=== PATIENT | female | born 1955 | race Caucasian/White ===

== ENCOUNTER 2022-11-19 12:08 | Outpatient (OUT) | payer MEDICARE, SELFPAY ==
[2022-11-19 12:41] LABS: Bilirubin Urine NEGATIVE (NEGATIVE); Blood Urine TRACE-I (NEGATIVE); Color Urine LT. YELLOW (YELLOW); Glucose Urine UA NEGATIVE (NEGATIVE); Ketones Urine NEGATIVE (NEGATIVE); Leukocyte Esterase Urine MODERATE (NEGATIVE); Nitrite Urine NEGATIVE (NEGATIVE); Protein Urine NEGATIVE (NEG/TRACE); Urobilinogen Urine 0.2 EU/dL (0.2-1.0)
[2022-11-19 12:44] LABS: Basophils Percent Auto 0.2 % (0.2-2.0); Hematocrit 39.9 % (36.0-48.0); Hemoglobin 13.2 g/dL (12.0-16.0); Immature Granulocytes Abs Auto 0.01 10^3/uL (0.00-0.03); Immature Granulocytes Pct Auto 0.2 % (0.0-0.5); Lymphocytes Absolute Auto 1.8 10^3/uL (1.2-3.8); Lymphocytes Percent Auto 33.2 % (20.5-60.0); Mean Corpuscular HGB Conc 33.1 g/dL (29.9-35.2); Mean Corpuscular Volume 96.6 fL (81.0-99.0); Mean Platelet Volume 10.6 fL (9.5-13.5); Monocytes Absolute Auto 0.6 10^3/uL (0.3-0.8); Monocytes Percent Auto 10.9 % (1.7-12.0); Neutrophils Percent Auto 55.5 % (43.0-75.0); Platelet Count 242 10^3/uL (150-450); Red Blood Count 4.13 10^6/uL (4.20-5.40); Red Cell Distribution Width 13.2 % (11.0-15.0); White Blood Count 5.4 10^3/uL (4.0-11.0)
[2022-11-19 12:47] LABS: Clarity Urine SLIGHTLY CLOUDY (CLEAR)
[2022-11-19 12:49] LABS: Bacteria Urine TRACE #/HPF (NONE SEEN); Cast Seen? NONE SEEN #/LPF (NONE SEEN); Crystals Seen? None Seen #/HPF (None Seen); Mucus Urine NONE SEEN (NONE SEEN); RBC Urine 0-2 #/HPF (0-2); Squamous Epithelial Cell Urine FEW #/LPF (NONE/RARE)
[2022-11-19 12:50] LABS: Urine Culture Indicated YES
[2022-11-19 14:38] LABS: Alanine Aminotransferase 425 U/L (14-59); Albumin Globulin Ratio 0.9; Albumin Level 3.7 g/dL (3.4-5.0); Alkaline Phosphatase 213 U/L (46-116); Amylase 44 U/L (25-115); Anion Gap 12.1; Aspartate Amino Transferase 259 U/L (15-37); BUN Creatinine Ratio 15.7; Bilirubin Total 0.5 mg/dL (0.2-1.0); Calcium 9.4 mg/dL (8.5-10.1); Carbon Dioxide 28.8 mmol/L (21.0-32.0); Chloride 104 mmol/L (98-107); Cholesterol 207 mg/dL (<=200); Estimated GFR (African America >60 (>=60); Estimated GFR (Non-African Ame >60 (>=60); Globulin 3.9 g/dL; Glucose 86 mg/dL (74-106); HDL Cholesterol 70 mg/dL (40-60); Potassium 3.9 mmol/L (3.5-5.1); Sodium 141 mmol/L (136-145); Total Protein 7.6 g/dL (6.4-8.2); Triglycerides 54 mg/dL (<=150); VLDL CHOLESTEROL 10.8 mg/dL
== END 2022-11-19 12:09 ==
LOC: LAB 12:12
PROVIDERS: PCP Nurse Practitioner; Visit Provider Nurse Practitioner
DX: R10.13 Epigastric pain (principal); E78.5 Hyperlipidemia, unspecified
CPT/HCPCS: 36415; 80053; 80061; 81001; 82150; 83690; 85025; 87086; 87150; 87186

== ENCOUNTER 2022-11-20 13:10 | Outpatient (OUT) | payer MEDICARE, SELFPAY ==
--- NOTE | 2022-11-20 13:21 | CT_ITS ---
The [address] [address] Patient Name: TRACI MULLINS MRN: [id number] date: 1955 Sex: F Assigned Patient Location: CT Current Patient Location: CT Accession/Order Number: [id number] Exam Date: 11/20/2022 14:30 Report Date: 11/20/2022 15:09 At the request of: SAL NELSON Procedure: CT abdomen pelvis w con EXAM: CT abdomen pelvis w con HISTORY: Epigastric pain R10.13, Elevated liver function tests R79.89 COMPARISON: None. TECHNIQUE: Following the intravenous administration of 99 mL of Omnipaque, axial soft tissue windows of the abdomen and pelvis were performed with coronal and sagittal reformats. CT dose reduction technique was used including Automated Exposure Control. Findings: ABDOMEN: There is fatty infiltration of the liver. The spleen, pancreas, and adrenal glands are unremarkable. There are stones within the gallbladder. No renal stones or collecting system dilatation. Off the lower pole of the right kidney there is a 1.1 cm cyst. The bilateral ureters are nondilated. The bowel is unremarkable without evidence of wall thickening or obstruction. The appendix is nondilated. The aorta is normal caliber. No enlarged abdominal lymph nodes or free abdominal fluid. Pelvis: Unremarkable bladder. The uterus is surgically absent. No enlarged pelvic lymph nodes or free pelvic fluid. No aggressive sclerotic or lytic osseous lesions. There is mild multilevel degenerative spondylosis. IMPRESSION: 1. Cholelithiasis. 2. Fatty liver. 3. Right renal cyst. Electronically authenticated by: PRIYA FORTE Date: 11/20/2022 15:09
== END 2022-11-20 13:11 ==
LOC: CT 13:13
PROVIDERS: PCP Nurse Practitioner; Visit Provider Nurse Practitioner
DX: R10.13 Epigastric pain (principal); R79.89 Other specified abnormal findings of blood chemistry; K80.20 Calculus of gallbladder without cholecystitis without obstruction; K76.0 Fatty (change of) liver, not elsewhere classified; N28.1 Cyst of kidney, acquired
CPT/HCPCS: 74177; Q9967

== ENCOUNTER 2022-11-21 07:28 | Outpatient (OUT) | payer MEDICARE, SELFPAY ==
[2022-11-21 07:53] LABS: Basophils Percent Auto 0.2 % (0.2-2.0); Hematocrit 39.8 % (36.0-48.0); Hemoglobin 13.3 g/dL (12.0-16.0); Immature Granulocytes Abs Auto 0.01 10^3/uL (0.00-0.03); Immature Granulocytes Pct Auto 0.2 % (0.0-0.5); Lymphocytes Absolute Auto 1.7 10^3/uL (1.2-3.8); Lymphocytes Percent Auto 34.1 % (20.5-60.0); Mean Corpuscular HGB Conc 33.4 g/dL (29.9-35.2); Mean Corpuscular Volume 95.7 fL (81.0-99.0); Mean Platelet Volume 10.2 fL (9.5-13.5); Monocytes Absolute Auto 0.6 10^3/uL (0.3-0.8); Monocytes Percent Auto 11.6 % (1.7-12.0); Neutrophils Absolute Auto 2.7 10^3/uL (1.4-6.5); Neutrophils Percent Auto 53.9 % (43.0-75.0); Platelet Count 230 10^3/uL (150-450); Red Blood Count 4.16 10^6/uL (4.20-5.40); Red Cell Distribution Width 13.4 % (11.0-15.0)
[2022-11-21 08:23] LABS: Alanine Aminotransferase 255 U/L (14-59); Albumin Globulin Ratio 0.9; Albumin Level 3.5 g/dL (3.4-5.0); Alkaline Phosphatase 194 U/L (46-116); Aspartate Amino Transferase 103 U/L (15-37); Bilirubin Direct 0.1 mg/dL (0.0-0.2); Bilirubin Total 0.6 mg/dL (0.2-1.0); Globulin 3.9 g/dL; Total Protein 7.4 g/dL (6.4-8.2)
== END 2022-11-21 07:29 | disposition home or self-care (01) ==
LOC: LAB 07:30
PROVIDERS: PCP Nurse Practitioner; Visit Provider Nurse Practitioner
DX: R79.89 Other specified abnormal findings of blood chemistry (principal)
CPT/HCPCS: 36415; 80076; 85025

== ENCOUNTER 2022-11-22 13:26 | Outpatient (OUT) | payer MEDICARE, SELFPAY ==
--- NOTE | 2022-11-22 13:55 | ECG_ITS ---
The [facility] Test Date: 2022-11-22 Pat Name: TRACI MULLINS Department: Room: - Gender: Female [employer]: : 1955 Requested By: SAL NELSON Order Number: [id number] Reading MD: JOSH GUEVARA Measurements Intervals [place] Rate: 74 P: 48 MT: 167 QRS: 5 QRSD: 82 T: 32 QT: 370 QTc: 412 Interpretive Statements SINUS RHYTHM VOLTAGE CRITERIA FOR LVH [MEETS CRITERIA IN ONE OF: R(aVL), S(V1), R(V5), R(V5/V6)+S(V1)] NONSPECIFIC T-WAVE ABNORMALITY No previous ECG available for comparison Electronically Signed On 11-24-2022 19:37:43 EDT by JOSH GUEVARA
== END 2022-11-22 13:27 | disposition home or self-care (01) ==
LOC: PST 13:26
PROVIDERS: PCP Nurse Practitioner; Visit Provider Surgery
DX: Z01.810 Encounter for preprocedural cardiovascular examination (principal); K80.20 Calculus of gallbladder without cholecystitis without obstruction
CPT/HCPCS: 93005

== ENCOUNTER 2022-11-26 09:36 | Day surgery (SDC) | payer MEDICARE, SELFPAY ==
[2022-11-22 14:22] VITALS: BP 147/87; PULSE 90; RESP 16; TEMP 36.6; O2SAT 98; BMI 31.0
[2022-11-26] VITALS (12 sets, daily range): BP systolic 127–155; BP diastolic 53–87; PULSE 58–74; RESP 13–21; TEMP 36.4; O2SAT 95–100; BMI 31.3
[2022-11-26] MEDS: LACTATED RINGER'S SOLUTION 1,000 ML 50 ML IV (10:06)
[2022-11-26] MEDS: INDOCYANINE GREEN 25 MG VIAL INJ (10:10)
[2022-11-26] MEDS: CEFAZOLIN SODIUM/DEXTROSE,ISO 2 GM/50 ML PIGGYBACK IV (10:15)
[2022-11-26] MEDS: SCOPOLAMINE 1 EACH PATCH.TD.3 1 PATCH TD (10:38)
[2022-11-26] MEDS: BUPIVACAINE HCL 0.5% PF 50 MG/10 ML VIAL 20 ML INJ (11:02)
--- NOTE | 2022-11-26 12:54 | PM.GSPRC ---
Date of procedure: 11/26/22 Indications for Procedure: This patient is a 66-year-old female who was recently seen for episodes of right upper quadrant pain. CT of the abdomen revealed cholelithiasis. Robotic cholecystectomy was recommended. The risks benefits options and potential complications of the procedure were discussed in detail with the patient and they agreed to proceed and consent was signed. Pre-op diagnosis: symptomatic cholelithiasis Post-op diagnosis: same Procedure: robotic cholecystectomy with ICG cholangiogram Anesthesia: GETA Surgeon: Bob Tolentino Procedure Summary: The patient was brought to the operating room placed in the supine position. Gen. anesthesia was induced and the patient was intubated. The abdomen was prepped and draped in usual sterile fashion. She had been given preoperative IV antibiotics and was also given preoperative ICG. A site in the left upper quadrant was infiltrated with half percent Marcaine with epinephrine. A small incision was made. A 12 mm port was placed through this incision and advanced into the peritoneal cavity under laparoscopic guidance. The abdomen was then insufflated to 15 mmHg of carbon dioxide. The camera was reintroduced and safe port site entry was confirmed. Three 8 mm robotic ports were then placed, one at the umbilicus and two in the right lateral abdomen following local anesthesia under direct visualization. The camera was removed and an additional 8 mm port was placed through the 12 mm port. the patient was then placed in reverse Trendelenburg position and banked to the left. At this time the da [place] XI was brought to the field and camera was introduced and all ports direct and instruments introduced in standard fashion.at this time I left the operating table and attended the surgeon consult. The fundus of the gallbladder is grasped and retracted cephalad. The region of Mcdonald's pouch was grasped and retracted laterally. Dissection was not carried out in the region of the triangle of Calot. The cystic duct was readily identified. This was confirmed with a dish room worker. This was then divided between clips. Posterior to this the cystic artery was identified. This was divided after clip placement. The gallbladder was then taken off the liver using electrocautery. Excellent hemostasis and secured clip placement was noted. The gallbladder was then placed in a retrieval bag. This was brought out through the 12 mm port site intact. Instruments, camera and ports were subsequently removed and the abdomen was desufflated. Skin incisions were closed with subcuticular sutures of 4-0 Vicryl. Sterile dressings were applied. The patient tolerated the procedure well and was transferred to the recovery area in stable condition. Estimated blood loss (mL): 2 Specimens: gallbladder Complications: No
[2022-11-26] MEDS: METOCLOPRAMIDE HCL 10 MG/2 ML VIAL IVP (12:58)
--- NOTE | 2022-11-26 13:34 | PC.NURSE ---
right dressing drainage amount unchanged; other 3 dressings dry; states nausea better; states she's afraid to move; given warm blanket; at bedside; taking sips water
--- NOTE | 2022-11-26 14:12 | PC.NURSE ---
right dressing drainage amount unchanged; other 3 dressings dry; denies nausea
--- NOTE | 2022-11-26 14:40 | PC.NURSE ---
Assessment of dressings unchanged; denies nausea
[2023-05-02 14:20] LABS: General Pathology SENT
== END 2022-11-26 14:44 | disposition home or self-care (01) ==
PROVIDERS: PCP Nurse Practitioner; Visit Provider Surgery
PROC: (CPT 47563; principal; 2022-11-26 10:55)
DX: K80.10 Calculus of gallbladder with chronic cholecystitis without obstruction (principal); Z90.710 Acquired absence of both cervix and uterus
CPT/HCPCS: 47563; 36415; 88305; J2704

== ENCOUNTER 2023-03-18 09:49 | Outpatient (OUT) | payer MEDICARE, SELFPAY ==
--- NOTE | 2023-03-18 10:00 | MM_ITS ---
Patient: TRACI MULLINS Exam Date: 03/18/2023 : 1955 Gender:F Ordering : RODRÍGUEZ Landy [place]oba [employer] Admission #: [id number] Family : Order #: [id number] CLICK HERE TO VIEW EXAM RADIOLOGY REPORT PROCEDURE: MM TOMOSYNTHESIS SCREENING BI COMPARISON: MG MAMM SCREEN 3D MAHESH CAD, 12/20/2021. INDICATIONS: Screening Calculator Name NCI Breast Cancer Risk Assessment Tool 5 Year Breast Cancer Risk Not Reported. Lifetime Breast Cancer Risk Not Reported. Personal Breast Cancer No Personal Ovarian Cancer No Treatments None Family Cancers None LOCATION: [facility] BREAST COMPOSITION: Scattered areas fibroglandular density. FINDINGS: DIAGNOSTIC CATEGORY 1--NEGATIVE. NO CHANGE FROM COMPARISON ASSESSMENT. Scattered benign-appearing lymph nodes are present. RIGHT BREAST: No significant suspicious finding. LEFT BREAST: No significant suspicious finding. RECOMMENDATIONS: ROUTINE MAMMOGRAM AND CLINICAL EVALUATION IN 12 MONTHS. PLEASE NOTE: A NORMAL MAMMOGRAM DOES NOT EXCLUDE THE POSSIBILITY OF BREAST CANCER. A CLINICALLY SUSPICIOUS PALPABLE LUMP SHOULD BE BIOPSIED. Dictated by: Alexis Richardson MD on 03/18/2023 at 11:02 Approved by: Alexis Richardson MD on 03/18/2023 at 11:29
== END 2023-03-18 09:50 | disposition home or self-care (01) ==
LOC: MAMMO 09:50
PROVIDERS: PCP Nurse Practitioner; Visit Provider Nurse Practitioner
DX: Z12.31 Encounter for screening mammogram for malignant neoplasm of breast (principal)
CPT/HCPCS: 77063; 77067

== ENCOUNTER 2024-09-27 10:29 | Outpatient (OUT) | payer MEDICARE, SELFPAY ==
[2024-09-27 11:10] LABS: Basophils Percent Auto 0.1 % (0.2-2.0); Hematocrit 37.7 % (36.0-48.0); Hemoglobin 12.7 g/dL (12.0-16.0); Immature Granulocytes Abs Auto 0.02 10^3/uL (0.00-0.03); Immature Granulocytes Pct Auto 0.3 % (0.0-0.5); Lymphocytes Absolute Auto 2.3 10^3/uL (1.2-3.8); Lymphocytes Percent Auto 30.6 % (20.5-60.0); Mean Corpuscular HGB Conc 33.7 g/dL (29.9-35.2); Mean Corpuscular Hemoglobin 32.6 pg (26.7-34.0); Mean Corpuscular Volume 96.9 fL (81.0-99.0); Mean Platelet Volume 10.2 fL (9.5-13.5); Monocytes Percent Auto 13.8 % (1.7-12.0); Neutrophils Absolute Auto 4.2 10^3/uL (1.4-6.5); Neutrophils Percent Auto 55.2 % (43.0-75.0); Platelet Count 246 10^3/uL (150-450); Red Blood Count 3.89 10^6/uL (4.20-5.40); Red Cell Distribution Width 13.2 % (11.0-15.0); White Blood Count 7.6 10^3/uL (4.0-11.0)
[2024-09-27 11:55] LABS: Alanine Aminotransferase 25 U/L (14-59); Albumin Level 3.3 g/dL (3.4-5.0); Alkaline Phosphatase 86 U/L (46-116); Anion Gap 10.8; Aspartate Amino Transferase 21 U/L (15-37); BUN Creatinine Ratio 15.4; Bilirubin Total 0.4 mg/dL (0.2-1.0); Calcium 9.2 mg/dL (8.5-10.1); Carbon Dioxide 30.3 mmol/L (21.0-32.0); Chloride 105 mmol/L (98-107); Estimated GFR (African America >60 (>=60 mL/min/1.73m^2); Estimated GFR (Non-African Ame >60 (>=60 mL/min/1.73m^2); Globulin 3.4 g/dL; Glucose 71 mg/dL (74-106); Potassium 4.1 mmol/L (3.5-5.1); Sodium 142 mmol/L (136-145); Total Protein 6.7 g/dL (6.4-8.2)
== END 2024-09-27 10:30 | disposition home or self-care (01) ==
LOC: LAB 10:31
PROVIDERS: PCP Nurse Practitioner; Visit Provider Nurse Practitioner
DX: E78.2 Mixed hyperlipidemia (principal); H81.10 Benign paroxysmal vertigo, unspecified ear
CPT/HCPCS: 36415; 80053; 85025

== ENCOUNTER 2024-10-06 07:46 | Outpatient (OUT) | payer MEDICARE, SELFPAY ==
--- NOTE | 2024-10-06 07:50 | MM_ITS ---
Patient Name: TRACI MULLINS MR#: [id number] : 1955 Exam Date: 10/06/2024 Ordering Doctor: RODRÍGUEZ NELSON CNP RADIOLOGY REPORT PROCEDURE: MM TOMOSYNTHESIS SCREENING BI COMPARISON: MM TOMOSYNTHESIS SCREENING BI, 03/18/2023. MG MAMM SCREEN 3D MAHESH CAD, 12/20/2021. MG MAMM SCREEN 3D MAHESH CAD, 04/24/2016. MG MAMM SCREEN 3D MAHESH CAD, 11/21/2009. INDICATIONS: Screening Calculator Name NCI Breast Cancer Risk Assessment Tool 5 Year Breast Cancer Risk Not Reported. Lifetime Breast Cancer Risk Not Reported. Personal Breast Cancer No Personal Ovarian Cancer No Treatments None Family Cancers None LOCATION: [facility] BREAST COMPOSITION: There are scattered areas of fibroglandular density. FINDINGS: DIAGNOSTIC CATEGORY 1--NEGATIVE. RIGHT BREAST: No significant suspicious finding. LEFT BREAST: No significant suspicious finding. RECOMMENDATIONS: ROUTINE MAMMOGRAM AND CLINICAL EVALUATION IN 12 MONTHS. PLEASE NOTE: A NORMAL MAMMOGRAM DOES NOT EXCLUDE THE POSSIBILITY OF BREAST CANCER. A CLINICALLY SUSPICIOUS PALPABLE LUMP SHOULD BE BIOPSIED. Dictated by: David Rao DO on 10/06/2024 at 16:03 Approved by: David Rao DO on 10/06/2024 at 16:04
== END 2024-10-06 07:47 | disposition home or self-care (01) ==
LOC: MAMMO 07:47
PROVIDERS: PCP Nurse Practitioner; Visit Provider Nurse Practitioner
DX: Z12.31 Encounter for screening mammogram for malignant neoplasm of breast (principal)
CPT/HCPCS: 77063; 77067

== ENCOUNTER 2025-03-22 06:48 | Outpatient (OUT) | payer MEDICARE, SELFPAY ==
--- OUTSIDE RECORDS SUMMARY | 2025-03-22 06:50 | XMS_ITS | CCD ---
Author Organization [facility] Inform ion Partnership [facility] Care Team Providers Care Christian Education Director Name Role Phone AICCHANTEL, DANCE HALL HOSTESS LANDY Admitting Unavailable AICHHOLZ, DANCE HALL HOSTESS LANDY Attending Unavailable AICHHOLZ, DANCE HALL HOSTESS LANDY Primary Care Unavailable DR GRECIA LOUISE V Consulting Unavailable AICHHOLZ, RODRÍGUEZ LANDY Consulting Unavailable RASTA COREY Consulting Unavailable SORAIDA GARCIA Admitting Unavailable SORAIDA GARCIA Attending Unavailable SORAIDA GARCIA Primary Care Unavailable SORAIDA GARCIA Consulting Unavailable GRECIA HODGES Unavailable AICHHOLZ, DANCE HALL HOSTESS LANDY Admitting Unavailable AICHHOLZ, DANCE HALL HOSTESS LANDY Attending Unavailable AICHHOLZ, DANCE HALL HOSTESS LANDY Primary Care Unavailable AICHHOLZ, DANCE HALL HOSTESS LANDY Consulting Unavailable Aichholz SOFTWARE REQUIREMENTS ENGINEER Landy Unavailable Tomas Martinez MD Primary Care Provider KYLAH PRECIADO Attending Unavailable KYLAH PRECIADO Referring Unavailable KYLAH PRECIADO Attending Unavailable AICHHOLZ, LANDY Attending Unavailable AICHHOLZ, LANDY Attending Unavailable Aichholz Landy GRAY Attending Provider Adalid CLANCY-Landy Rojas Primary Care Provider Allergies Allergy ClassificationReported Allergen(s)Allergy TypeDate of OnsetReaction(s) Facility (15 sources)CodeineDrug Zoccszd01-09-5414FA intoleranceNOMS Healthcare Work Phone: Medications Current Medications MedicationDrug Class(es)DatesSig (Normalized)Sig (Original)busPIRone hydrochloride 5 mg oral tablet (4 sources)Start: 01-12-2025 End: 58-51-0044vfhq 1 tablet by mouth in the morningbusPIRone (Buspar) 5 MG tablet Indications: Elevated blood pressure reading Take 1 tablet (5 mg) bymouth in the morning and 1 tablet (5 mg) before bedtime. 60 tablet 1 01/12/2025 01/12/2025 Discontinued (Reorder)FLUoxetine 10 mg oral capsule (2 sources)Serotonin Reuptake InhibitorStart: 02-19-2025 End: 87-68-0451etnp 1 capsule by mouth once dailyFluoxetine 10 mg capsule Active 10 MG PO Daily February 22, 2025 10:23am Complies with drug therapy losartan potassium 25 mg oral tablet (2 sources)Angiotensin 2 Receptor BlockerStart: 02-22-2025 End: 41-07-0707dlhb 1 tablet by mouth once dailyLosartan 25 mg tablet Active 25 MG PO Daily February 22, 2025 10:23am Complies with drug therapymeloxicam 15 mg oral tablet (8 sources)Nonsteroidal Anti-inflammatory DrugStart: 07-06-2024 End: 11-74-1906zpex 1 tablet by mouth once dailymeloxicam (Mobic) 15 MG tablet Indications: Plantar fasciitis Take 1 tablet (15 mg) by mouth Daily 90 tablet 08/03/2024 11/01/2024 ActivemethylPREDNISolone (5 sources)CorticosteroidStart: 07-06-2024 End: 70-72-7527qapdraHPUMIYZkfnsv (Medrol Dospak) 4 MG tablets Indications: Plantar fasciitis Take as directed on package. 21 tablet 07/06/2024 08/03/2024 Discontinued (Therapy completed)Start: 09-33-3719fnrsgbXWRDFZJkytcl (Medrol Dospak) 4 MG tablets Indications: Plantar fasciitis Take as directed on package. 21 tablet 07/06/2024 Active Problems Problem ClassificationProblemDateDocumented DateEpisodic/ChronicAbdominal pain (5 sources)Right upper quadrant pain; Translations: [RIGHT UPPER QUADRANT PAIN] Onset: 93-18-3025UvktdopiNuhzyan disorders (6 sources)Generalized anxiety disorder; Translations: [Generalized anxiety disorder]Onset: 200790-88-5596VahjohgGkfqadxdcb associated with dizziness or vertigo (18 sources)Benign paroxysmal positional vertigo; Translations: [Benign paroxysmal vertigo, unspecified ear]Onset: 385102-92-7441VvtdyivuBendbhgft of lipid metabolism (18 sources)Mixed hyperlipidemia; Translations: [Mixed hyperlipidemia]Onset: 098699-69-0404WqwsnxpPbmuoqrkt hypertension (2 sources)Essential hypertension; Translations: [Essential (primary) hypertension]31-01-1525FomnwcbOeywtzslebjyxc (20 sources)Heberden node; 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)] Onset: 04-20-2024 Resolved: 771572-78-9010LxujbotWitqy acquired deformities (20 sources)Equinus contracture of the ankle; Translations: [Contracture, unspecified ankle]Onset: 972039-88-7096TcjbdhmFozbe circulatory disease (5 sources)Elevated blood pressure; Translations: [Elevated blood-pressure reading, without diagnosis of hypertension]Onset: 862074-05-9520Hflztlht Other connective tissue disease (4 sources)Plantar fasciitis; Translations: [Plantar fascial fibromatosis] 84-90-7275FpdxdcqoRdjbb connective tissue disease (2 sources)Pain in right foot; Translations: [Pain in right foot]07-06-2024 EpisodicOther nutritional; endocrine; and metabolic disorders (1 source)Obesity, unspecified; Translations: [OBESITY UNSPECIFIED]Onset: 98-35-7779QrtxluxZzhas screening for suspected conditions (not mental disorders or infectious disease) (20 sources)Encounter for screening mammogram for malignant neoplasm of breast; Translations: [Encounter for screening for lipoid disorders]Onset: 11-29-2021 Episodic Results Test NameValueInterpretationReference RangeFacilityMM TOMOSYNTHESIS SCREENING BI on 10-72[place] [address] Mammography Report Signed Patient: ANGELES MULLINS MR#: [id number] : 1955 Acct:[id number] Age/Sex: 68 / F ADM Date: 10/06/24 Loc: MAMMO Attending Dr: Landy Cordoba NP Ordering Physician: Landy Cordoba NP Results: Date of Service: 10/06/24 Follow Up: Procedure(s): MM tomosynthesis screening BI Accession Number(s): [id number] cc: Landy Cordoba NP Patient Name: ANGELES MULLINS MR#: [id number] : 1955 Exam Date: 10/06/2024 Ordering Doctor: RODRÍGUEZ CORDOBA CNP RADIOLOGY REPORT PROCEDURE: MM TOMOSYNTHESIS SCREENING BI COMPARISON: MM TOMOSYNTHESIS SCREENING BI, 03/18/2023. MG MAMM SCREEN 3D MAHESH CAD, 12/20/2021. MG MAMM SCREEN 3D MAHESH CAD, 04/24/2016. MG MAMM SCREEN 3D MAHESH CAD, 11/21/2009. INDICATIONS: Screening Calculator Name NCI Breast Cancer Risk Assessment Tool 5 Year Breast Cancer Risk Not Reported. Lifetime Breast Cancer Risk Not Reported. Personal Breast Cancer No Personal Ovarian Cancer No Treatments None Family Cancers None LOCATION: [facility] BREAST COMPOSITION: There are scattered areas of fibroglandular density. FINDINGS: DIAGNOSTIC CATEGORY 1--NEGATIVE. RIGHT BREAST: No significant suspicious finding. LEFT BREAST: No significant suspicious finding. RECOMMENDATIONS: ROUTINE MAMMOGRAM AND CLINICAL EVALUATION IN 12 MONTHS. PLEASE NOTE: A NORMAL MAMMOGRAM DOES NOT EXCLUDE THE POSSIBILITY OF BREAST CANCER. A CLINICALLY SUSPICIOUS PALPABLE LUMP SHOULD BE BIOPSIED. Dictated by: David Rao DO on 10/06/2024 at 16:03 Approved by: David Rao DO on 10/06/2024 at 16:04 Dictated By: David Rao M.D. Signed By: 10/06/24 1605 DD/ 1604 TD/TT: Data Control Clerk Supervisor:TBHRadiology, Radiologist, MD - 10/06/2024 [place] [address] Mammography Report Signed Patient: ANGELES MULLINS MR#: [id number] : 1955 Acct:[id number] Age/Sex: 68 / F ADM Date: 10/06/24 Loc: MAMMO Attending Dr: Landy Cordoba NP Ordering Physician: Landy Cordoba NP Results: Date of Service: 10/06/24 Follow Up: Procedure(s): MM tomosynthesis screening BI Accession Number(s): [id number] cc: Landy Cordoba NP Patient Name: ANGELES MULLINS MR#: [id number] : 1955 Exam Date: 10/06/2024 Ordering Doctor: RODRÍGUEZ CORDOBA CNP RADIOLOGY REPORT PROCEDURE: MM TOMOSYNTHESIS SCREENING BI COMPARISON: MM TOMOSYNTHESIS SCREENING BI, 03/18/2023. MG MAMM SCREEN 3D MAHESH CAD, 12/20/2021. MG MAMM SCREEN 3D MAHESH CAD, 04/24/2016. MG MAMM SCREEN 3D MAHESH CAD, 11/21/2009. INDICATIONS: Screening Calculator Name NCI Breast Cancer Risk Assessment Tool 5 Year Breast Cancer Risk Not Reported. Lifetime Breast Cancer Risk Not Reported. Personal Breast Cancer No Personal Ovarian Cancer No Treatments None Family Cancers None LOCATION: [facility] BREAST COMPOSITION: There are scattered areas of fibroglandular density. FINDINGS: DIAGNOSTIC CATEGORY 1--NEGATIVE. RIGHT BREAST: No significant suspicious finding. LEFT BREAST: No significant suspicious finding. RECOMMENDATIONS: ROUTINE MAMMOGRAM AND CLINICAL EVALUATION IN 12 MONTHS. PLEASE NOTE: A NORMAL MAMMOGRAM DOES NOT EXCLUDE THE POSSIBILITY OF BREAST CANCER. A CLINICALLY SUSPICIOUS PALPABLE LUMP SHOULD BE BIOPSIED. Dictated by: David Rao DO on 10/06/2024 at 16:03 Approved by: David Rao DO on 10/06/2024 at 16:04 Dictated By: David Rao M.D. Signed By: 10/06/24 1605 DD/ 1604 TD/TT: Data Control Clerk Supervisor: DAIANA HealthcareRadiology Study observation (narrative)[facility]M Health CareMM TOMOSYNTHESIS SCREENING BIOrdered By: Radiologist Radiology on 41-99-6557IXVDSSM Health Care Work Phone: aLL CBC WITH AUTO DIFFon [id number] ABSOLUTE SURK7ZVUJ HealthcareBasophils/100 WBC (Bld)0.1 %Low0.2 - 2.0 %[facility] Eosinophils/100 WBC (Bld)0 %Low0.9 - 7.0 %NOM HealthcareErythrocyte distribution width (RBC) [Ratio]13.2 %11.0 - 15.0 %NOM HealthcareHematocrit (Bld) [Volume fraction]37.7 %36.0 - 48.0 %[facility] HealthcareHemoglobin (Bld) [Mass/Vol]12.7 g/dL12.0 - 16.0 g/dLSSM Health CareIMMATURE GRANULOCYTES ABS AUTO 0.02NOLee's Summit HospitalImmature granulocytes/100 WBC (Bld)0.3 %0.0 - 0.5 %[facility] Health CareInterpretation and review of laboratory resultsAbnormalSSM Health Care LYMPHOCYTES ABSOLUTE AUTO2.3NOLee's Summit HospitalLymphocytes/100 WBC (Bld)30.6 %20.5 - 60.0 %[facility] CenterH (RBC) [Entitic mass]32.6 pg26.7 - 34.0 pgMissouri Rehabilitation CenterHC (RBC) [Mass/Vol]33.7 g/dL29.9 - 35.2 g/dLMissouri Rehabilitation CenterV (RBC) [Entitic vol]96.9 fL81.0 - 99.0 fLSSM Health CareMONOCYTES ABSOLUTE ZLRK5Cmpi SSM Health CareMonocytes/100 WBC (Bld)13.8 %High1.7 - 12.0 %[facility] NEUTROPHILS ABSOLUTE AUTO4.2NOMS [facility] HospitalNeutrophils/100 WBC (Bld)55.2 %43.0 - 75.0 %[facility] Health CarePlatelet mean volume (Bld) [Entitic vol]10.2 fL9.5 - 13.5 fLSSM Health CareTB EO #0NOLee's Summit HospitalTB [id number]'s Summit Hospital RBC3.89Low [facility] WBC7.6SSM Health CareCLINISYNCNOMS HealthcareXR Calcaneus - right 2 Viewson 61-42-5795Tgfaxfk Result: Lateral, calcaneal axial views are weight-bearing. Slight rearfoot varus. There is decreased calcaneal inclination, increased talar declination. Enthesophyte and calcifications noted at the insertion of the plantar fascia. Appears to be dorsal talonavicular step-off consistent with spring ligament tear, likely chronic.[facility] CenterRadiology Study observation (narrative)SSM Health CareMG MAMM SCREEN 3D MAHESH CADon 70-68-8912MX MAMM SCREEN 3D MAHESH CADPatient: NAGELES MULLINS Exam Date: 12/20/2021 : 1955 Gender:F Ordering : RODRÍGUEZ CORDOBA DANCE HALL HOSTESS Admission #: [id number] Family : Order #: [id number] CLICK HERE TO VIEW EXAM RADIOLOGY REPORT PROCEDURE: MAMMOGRAM SCREENING 3D BILATERAL CAD COMPARISON: MG MAMM SCREEN 3D MAHESH CAD, 11/21/2009. MG MAMM SCREEN 3D MAHESH CAD, 04/24/2016. INDICATIONS: Screening mammography Calculator Name NCI Breast Cancer Risk Assessment Tool 5 Year Breast Cancer Risk Not Reported. Lifetime Breast Cancer Risk Not Reported. Personal Breast Cancer No Personal Ovarian Cancer No Treatments None Family Cancers None LOCATION: [facility] BREAST COMPOSITION: Scattered areas fibroglandular density. FINDINGS: DIAGNOSTIC CATEGORY 2--BENIGN FINDING: Scattered benign-appearing calcifications are present. Scattered benign-appearing lymph nodes are present. RIGHT BREAST: No significant suspicious finding. LEFT BREAST: No significant suspicious finding. RECOMMENDATIONS: ROUTINE MAMMOGRAM AND CLINICAL EVALUATION IN 12 MONTHS. PLEASE NOTE: A NORMAL MAMMOGRAM DOES NOT EXCLUDE THE POSSIBILITY OF BREAST CANCER. A CLINICALLY SUSPICIOUS PALPABLE LUMP SHOULD BE BIOPSIED. Dictated by: Grecia Louise MD on 12/20/2021 at 13:24 Approved by: Grecia Louise MD on 12/20/2021 at 13:26[facility] CenterNM HEPATOBILIARY SCAN W EFon 26-98-3045NA HEPATOBILIARY SCAN W EFHIDA SCAN WITH GALLBLADDER EJECTION FRACTION HISTORY: Abdominal Pain. COMPARISON: Ultrasound 05/30/2021. METHOD: Following IV injection of 5.1 mCi of aueqnbqpbo-45a-Qbyxvxsc, anterior imaging of the abdomen was acquired for 60 minutes. After the gallbladder was given 8 ounces of Ensure and the gallbladder ejection fraction was calculated. FINDINGS: There is satisfactory uptake of radiopharmaceutical by the liver. The gallbladder, bile duct, and bowel are seen in the expected period of time and sequence. The gallbladder ejection fraction is normal at 76%. IMPRESSION: Normal hepatic biliary scintigraphy and gallbladder ejection fraction. Electronically authenticated by: RASTA COREY Date: 2021-12-20 15:24[facility] AUTO DIFFon [id number] #0.0 103/ulNormal0.0-0.1The [facility] HospitalComment on above:Performed By: #### CBC #### [facility] [address] [address] [address] Maria G Barrossophils/100 WBC (Bld)0.2 %Normal0.2-2.0[facility] Comment on above:Performed By: #### CBC #### [facility] [address] [place] [address] Dr. Maria G Huggins #0.0 103/ulNormal0.0-0.7The [facility] HospitalComment on above: Performed By: #### CBC #### [facility] [address] [place] [address] Dr. Maria G Bainosinophils/100 WBC (Bld)0.0 %Critically low0.9-7.0The [facility] HospitalComment on above:Performed By: #### CBC #### [facility] [address] [place] [address] Dr. Maria G Bainrythrocyte distribution width (RBC) [Ratio]13.7 %Icnrhk56.0-15.0 The [facility] HospitalComment on above:Performed By: #### CBC #### [facility] [address] [place] [address] Dr. Maria G EmHematocrit (Bld) [Volume fraction]40.8 %Ccjclm56.0-48.0The [facility] HospitalComment on above:Performed By: #### CBC #### [facility] [address] [place] [address] Dr. Maria G EmHemoglobin (Bld) [Mass/Vol]13.3 g/xCRxgnma12.0-16.0The [facility] HospitalComment on above:Performed By: #### CBC #### [facility] [address] [place] [address] Dr. Maria G Washington #0.01 10e3/ulNormal0.00-0.03The [facility] HospitalComment on above:Performed By: #### CBC #### [facility] [address] [place] [address] Dr. Maria G Washington %0.2 %Normal0.0-0.5The [facility] HospitalComment on above: Performed By: #### CBC #### [facility] [address] [place] [address] Dr. Maria G Burch #1.9 103/ulNormal1.2-3.8The [facility] HospitalComment on above:Performed By: #### CBC #### [facility] [address] [place] [address] Dr. Maria G Chaparromphocytes/100 WBC (Bld)33.8 %Rrlypd54.5-60.0The [facility] HospitalComment on above:Performed By: #### CBC #### [facility] [address] [place] [address] Dr. Maria G Quintana DIFF REQNONormalThe [facility] HospitalComment on above: Performed By: #### CBC #### [facility] [address] [place] [address] Dr. Maria G Salcido (RBC) [Entitic mass]31.5 abAatbxm31.7-34.0The [facility] HospitalComment on above:Performed By: #### CBC #### [facility] [address] [place] [address] Dr. Maria G Salcido (RBC) [Mass/Vol]32.6 g/gZQfblpt62.9-35.2The [facility] HospitalComment on above:Performed By: #### CBC #### [facility] [address] [place] [address] Dr. Maria G Collier (RBC) [Entitic vol]96.7 gTPocqfm27.0-99.0The [facility] HospitalComment on above:Performed By: #### CBC #### [facility] [address] [place] [address] Dr. Maria G Centeno #0.8 103/ulNormal0.3-0.8The [facility] HospitalComment on above:Performed By: #### CBC #### [facility] [address] [place] [address] Dr. Maria G Mimsocytes/100 WBC (Bld)13.5 %Critically high1.7-12.0The [facility] HospitalComment on above:Performed By: #### CBC #### [facility] [address] [place] [address] Dr. Maria G Romero #3.0 103/ulNormal1.4-6.5The [facility] HospitalComment on above:Performed By: #### CBC #### [facility] [address] [address] [address] Maria G Hdzutrophils/100 WBC (Bld)52.3 %Imqkea17.0-75.0The [facility] HospitalCombeaumont hospital on above:Performed By: #### CBC #### [facility] [address] [place] [address] Dr. Maria G EmPlatelet mean volume (Bld) [Entitic vol]11.7 fLNormal9.5-13.5The [facility] HospitalCombeaumont hospital on above:Performed By: #### CBC #### [facility] [address] [place] [address] Dr. Maria G EmPLT251 103/ysMiyfcg902-223Kym [facility] HospitalCombeaumont hospital on above: Performed By: #### CBC #### [facility] [address] [place] [address] Dr. Maria G EmRBC4.22 106/ulNormal4.20-5.40The [facility] on above:Performed By: #### CBC #### [facility] [address] [place] [address] Dr. Maria G EmWBC5.7 103/ulNormal4.0-11.0The [facility] on above: Performed By: #### CBC #### [facility] [address] [place] [address] Dr. Maria G EmLIPID PROFILEon 37-39-8177YFKX-HDL RATIO NORMSACMC Healthcare System GlenbeighCombeaumont hospital on above:Result Comment: 3.3 - 4.4 LOW RISK 4.4 - 7.1 AVERAGE RISK 7.1 - 11.0 MODERATE RISK >11.0 HIGH RISKPerformed By: #### CMP, LIPID #### [facility] [address] [place] [address] Dr. Maria G EmCholesterol [Mass/Vol]208 mg/dLCritically high<=200The [facility] on above:Performed By: #### CMP, LIPID #### [facility] [address] [address] [address] Maria G EmCholesterol in HDL [Mass/Vol]55 mg/oXGerowe50-55Zhg [facility] HospitalComment on above:Performed By: #### CMP, LIPID #### [facility] [address] [address] [address] Maria G EmCholesterol in LDL [Mass/Vol]136.4 mg/dLNoAdena Health SystemComment on above:Performed By: #### CMP, LIPID #### [facility] [address] [place] [address] Dr. Maria G Devine.total/Cholesterol in HDL [Mass ratio]3.8 {ratio} NormalThe [facility] HospitalComment on above:Performed By: #### CMP, LIPID #### [facility] [address] [place] [address] Dr. Maria G Selby NORMAL> or = 60 mg/dl - LOW CARDIOVASCULAR RISK <40 mg/dl - HIGH CARDIOVASCULAR RISKUniversity Hospitals Conneaut Medical CenterCombeaumont hospital on above:Performed By: #### CMP, LIPID #### [facility] [address] [place] [address] Dr. Maria G Brar CALC NORMALSEE BELOWUniversity Hospitals Conneaut Medical CenterComment on above:Result Comment: <100 mg/dl OPTIMAL 100 - 129 mg/dl NEAR OR ABOVE OPTIMAL 130 - 159 mg/dl BORDERLINE HIGH 160 - 189 mg/dl HIGH >190 mg/dl VERY HIGH Performed By: #### CMP, LIPID #### [facility] [address] [place] [address] Dr. Maria G EmTriglyceride [Mass/Vol]83 mg/dLNormal<=150The [facility] Comment on above:Performed By: #### CMP, LIPID #### [facility] [address] [address] [address] Maria G HouseLDL CALC16.6 mg/dLNoAdena Health SystemComment on above: Performed By: #### CMP, LIPID #### [facility] [address] [address] [address] Maria G Cabrera 14(COMP METB)on 20-27-4514Szqvbsy [Mass/Vol]3.5 g/dLNormal 3.4-5.0The [facility] HospitalComment on above:Performed By: #### CMP, LIPID #### [facility] [address] [address] [address] Maria G EmAlbumin/Globulin [Mass ratio]1.0 {ratio}NormalThe [facility] HospitalComment on above:Performed By: #### CMP, LIPID #### [facility] [address] [address] [address] Maria G Spivey [Catalytic activity/Vol]83 U/FIopine64-425Kro [facility] HospitalComment on above:Performed By: #### CMP, LIPID #### [facility] [address] [address] [address] Maria G Ruvalcaba [Catalytic activity/Vol]29 U/TJinzod15-26Xpu [facility] HospitalComment on above:Performed By: #### CMP, LIPID #### [facility] [address] [address] [address] Maria G Gallo gap [Moles/Vol]12.5 mmol/LNormalThe [facility] Comment on above:Performed By: #### CMP, LIPID #### [facility] [address] [address] [address] Maria G Haridn [Catalytic activity/Vol]21 U/EQgfsrl57-36Ahc [facility] HospitalComment on above:Performed By: #### CMP, LIPID #### [facility] [address] [address] [address] Maria G EmBilirubin [Mass/Vol]0.3 mg/dLNormal0.2-1.0The [facility] Comment on above:Performed By: #### CMP, LIPID #### [facility] [address] [address] [address] Maria G EmCalcium [Mass/Vol]9.0 mg/dLNormal8.5-10.1The [facility] Comment on above:Performed By: #### CMP, LIPID #### [facility] [address] [address] [address] Maria G EmChloride [Moles/Vol]107 mmol/UHuzyqt51-208Nbt [facility] Comment on above:Performed By: #### CMP, LIPID #### [facility] [address] [address] [address] Maria G EmCO2 [Moles/Vol]28.1 mmol/MDjnvkg10.0-32.0The [facility] Comment on above:Performed By: #### CMP, LIPID #### [facility] [address] [address] [address] Maria G EmCreatinine [Mass/Vol]0.90 mg/dLNormal0.55-1.02White HospitalComment on above:Performed By: #### CMP, LIPID #### [facility] [address] [address] [address] Maria G BainGFR-AF YEMENI>60Normal>=60The [facility] HospitalComment on above:Performed By: #### CMP, LIPID #### [facility] [address] [address] [address] Maria G Gonzalez-NON AF YEMENI>60Normal>=60The [facility] HospitalComment on above:Performed By: #### CMP, LIPID #### [facility] [address] [address] [address] Maria G EmGlobulin (S) [Mass/Vol]3.4 g/dLNormalThe [facility] HospitalComment on above:Performed By: #### CMP, LIPID #### [facility] [address] [address] [address] Maria G EmGlucose [Mass/Vol]93 mg/xGFvjygm19-670OqzWhite Hospital Comment on above:Performed By: #### CMP, LIPID #### [facility] [address] [address] [address] Maria G EmPotassium [Moles/Vol]4.6 mmol/LNormal3.5-5.1The [facility] Comment on above:Performed By: #### CMP, LIPID #### [facility] [address] [address] [address] Maria G EmProtein [Mass/Vol]6.9 g/dLNormal6.4-8.2The [facility] Comment on above:Performed By: #### CMP, LIPID #### [facility] [address] [address] [address] Maria G EmSodium [Moles/Vol]143 mmol/DLxyiac833-994Tlm [facility] Comment on above:Performed By: #### CMP, LIPID #### [facility] [address] [address] [address] Maria G Michael nitrogen [Mass/Vol]14.0 mg/dLNormal7.0-18.0The [facility] HospitalComment on above:Performed By: #### CMP, LIPID #### [facility] [address] [place] [address] Dr. Maria G Michael nitrogen/Creatinine [Mass ratio]15.6 mg/mgNormalThe [facility] HospitalComment on above:Performed By: #### CMP, LIPID #### [facility] [address] [place] [address] Dr. Maria G Saeed RANDOM W/MICROSCOPICon 95-58-5329TPPQDNYNF CRYSTALSFEWNormal The [facility] HospitalComment on above:Performed By: #### UAMIC #### [facility] [address] [place] [address] Dr. Maria G BarrosCTERIAMODERATEAbnormalNONE SEENWhite HospitalComment on above:Performed By: #### UAMIC #### [facility] [address] [place] [address] Dr. Maria G EmBilirubin Ql (U)NegativeNormalNEGATIVEWhite Hospital Comment on above:Performed By: #### UAMIC #### [facility] [address] [place] [address] Dr. Maria G EmCASTRENE SEENNormalNONE SEENWhite HospitalComment on above:Performed By: #### UAMIC #### [facility] [address] [address] [address] Maria G EmClarity (U)CLEARNormalCLEARWhite HospitalComment on above: Performed By: #### UAMIC #### [facility] [address] [address] [address] Maria G Musa (U)LT. YELLOWNormalYELLOWWhite HospitalComment on above:Performed By: #### UAMIC #### [facility] [address] [address] [address] Maria G EmCrystals LM Nom (Urine sed)SEENAbnormalNONE SEENWhite HospitalComment on above:Performed By: #### UAMIC #### [facility] [address] [place] [address] Dr. Cummins ChangEpithelial cells LM Ql (Urine sed)FEWAbnormalNONE SEEN /RAREThe [facility]lap Memorial HospitalComment on above:Performed By: #### UAMIC #### [facility] [address] [place] [address] Dr. Maria G EmGlucose Ql (U)NegativeNormalNEGATIVEWhite HospitalComment on above:Performed By: #### UAMIC #### [facility] [address] [place] [address] Dr. Maria G EmHemoglobin Ql (U)NegativeNormalNEGATIVEKettering Health [place] on above:Performed By: #### UAMIC #### [facility] [address] [place] [address] Dr. Maria G EmKetones Ql (U)NegativeNormalNEGATIVEWhite HospitalComment on above:Performed By: #### UAMIC #### [facility] [address] [place] [address] Dr. Maria G EmLEUKOCYTESSMALLAbnormalNEGATIVEWhite HospitalComment on above:Performed By: #### UAMIC #### [facility] [address] [address] [address] Maria G EmMUCOUSNONE SEENNormalNONE SEENWhite HospitalComment on above:Performed By: #### UAMIC #### [facility] [address] [place] [address] Dr. Maria G Jones Ql (U)NegativeNormalNEGATIVEThe [facility] HospitalComment on above:Performed By: #### UAMIC #### [facility] [address] [place] [address] Dr. Maria G EmpH (U)5.5 [pH]Normal5-9The [facility] Memorial HospitalComment on above: Performed By: #### UAMIC #### [facility] [address] [place] [address] Dr. Maria G EmRBCNONE SEENAbnormal0-2The [facility] HospitalComment on above: Performed By: #### UAMIC #### [facility] [address] [place] [address] Dr. Maria G EmSPEC GRAVITY1.475Qfrofr7.005-<=1.025The [facility] Memorial HospitalComment on above:Performed By: #### UAMIC #### [facility] [address] [place] [address] Dr. Maria G Saeed PROTEINNegativeNormalNEGATIVE/ TRACEThe [facility] Comment on above:Performed By: #### UAMIC #### [facility] [address] [place] [address] Dr. Maria G Martinbilyordygen Qn (U)0.2 {Rupal'U}/dLNormal0.2 - 1.0The [facility] HospitalComment on above:Performed By: #### UAMIC #### [facility] [address] [place] [address] Dr. Maria G EmZwtwxKTM57-45WdikdmmaOJBU SEENWhite HospitalComment on above: Performed By: #### UAMIC #### [facility] [address] [place] [address] Dr. Maria G EmProvider Letter FTon 16-74-0748Nstpfxpp Letter [facility]2021 Soraida Garcia, [address] [place] [address] Re: ANGELES MULLINS Date of : 1955 Thank you for your referral of Angeles Mullins who was seen on consultation for RUQ pain with nausea and vomiting. I have enclosed my consultation note for your review. I will be happy to follow Angeles should her symptoms persist. Sincerely, Rowdy Soto MD General SurgeryNationwide Children's HospitalRAD - Ultrasound Reporton [id number] - Ultrasound Report [id number]:127[facility] HospitalRAD - Ultrasound Reporton [id number] - Ultrasound Report [id number]:127[facility]wide Children's HospitalUS SINGLE QUAD RT UPPERon 53-86-2031HD SINGLE QUAD RT UPPEREXAM: US SINGLE QUAD RT UPPER HISTORY: . Right upper quadrant pain . COMPARISON: None. TECHNIQUE: Oswald scale and color imaging was performed FINDINGS: The body of the pancreas appears normal. The head and tail was obscured due to overlying bowel gas. Scanning of the liver demonstrates a liver to be normal in size. No focal masses or biliary dilatation is noted. Color-flow is noted in the portal and hepatic veins the gallbladder there is a 1.9 x 1.4 cm echogenic focus with no shadowing. Findings would be most consistent with a sludge ball. Patient had no pain upon scanning over the gallbladder. Common bile duct measures 8 mm. Right kidney measured 10.8 x 4 x 4.2 cm. No solid renal cortical masses or hydronephrosis was noted. No fluid was noted in the right upper quadrant. IMPRESSION: 1. 1.9 x 1.4 cm echogenic focus within the gallbladder without shadowing most consistent with a sludge ball. Patient had no pain upon scanning over the gallbladder. 2. Common bile duct was prominent measuring 8 mm. 3. The body of the pancreas appears normal. The head and tail was obscured due to overlying bowel gas. 4. The remainder the right upper quadrant was unremarkable. Electronically authenticated by: GRECIA HODGES Date: 2021-05-30 08:24[facility] Vital Signs Date TimeVital SignValuePerforming FcgwnsmatRucmsdhr59-13-2493 09:58-0400Body srdyjl853.21 Baldemarisa Aichholz SOFTWARE REQUIREMENTS ENGINEER-C Work Phone: [phone] [place], [place] 0310609-23-2025 09:58-0400 Body mass index (BMI) [Ratio]31.6 kg/m2Lisa Aichholz SOFTWARE REQUIREMENTS ENGINEER-C Work Phone: [phone]09-23-2025 09:58-0400 Body frxevyhblud17.6 [degF]Landy Aichholz SOFTWARE REQUIREMENTS ENGINEER-C Work Phone: [phone]09-23-2025 09:58-0400 Body gnzjer62.22 kgLisa Aichholz SOFTWARE REQUIREMENTS ENGINEER-C Work Phone: [phone]09-23-2025 09:58-0400 Diastolic blood bqsirjtv027 mm[Hg]Landy Aichholz SOFTWARE REQUIREMENTS ENGINEER-C Work Phone: [phone]09-23-2025 09:58-0400 Heart rate60 /minLisa Aichholz SOFTWARE REQUIREMENTS ENGINEER-C Work Phone: [phone]09-23-2025 09:58-0400 Respiratory rate18 /minLisa Aichholz SOFTWARE REQUIREMENTS ENGINEER-C Work Phone: [phone]09-23-2025 09:58-0400 SaO2% (BldA) [Mass fraction]96 %Landy Aichholz SOFTWARE REQUIREMENTS ENGINEER-C Work Phone: [phone] [place], [place] [address]609-23-2025 09:58-0400 Systolic blood isxjxjvz165 mm[Hg]Landy Aichholz SOFTWARE REQUIREMENTS ENGINEER-C Work Phone: [phone]08-13-2025 09:37-0400 Body mass index (BMI) [Ratio]32.61 kg/m2Lisa Aichholz SOFTWARE REQUIREMENTS ENGINEER Work Phone: [facility] CareLyfaovtmvk41-56-1961 09:37-0400Body temperature 97.81 [degF]Landy Aichholz SOFTWARE REQUIREMENTS ENGINEER Work Phone: [facility] CareBllrylvvfg42-56-0197 09:37-0400Body mybikk22.29 kgLandy Cordoba SOFTWARE REQUIREMENTS ENGINEER Work Phone: [facility] CareCmqdgylgtm68-63-3160 09:37-0400Diastolic blood lqdrirgn45 mm[Hg]Landy Cordoba SOFTWARE REQUIREMENTS ENGINEER Work Phone: [facility] CareQeuytzceaf58-04-9316 09:37-0400Heart rate62 /min Landy Cordoba SOFTWARE REQUIREMENTS ENGINEER Work Phone: [facility] CarePxdpfcicsa12-12-2015 09:37-0400Respiratory rate20 /minLandy Cordoba SOFTWARE REQUIREMENTS ENGINEER Work Phone: [facility] CareSwvnjsezsa80-24-3200 09:37-8790PhD9% (BldA) [Mass fraction]98 %Landy Cordoba SOFTWARE REQUIREMENTS ENGINEER Work Phone: [facility] CareOliwrlvocv32-83-8714 09:37-0400Systolic blood lznmyuyx939 mm[Hg]Landy Cordoba SOFTWARE REQUIREMENTS ENGINEER Work Phone: [facility] CareUecuminiwd77-43-4203 08:56-0500Body gcvzzi969.9 cmAnthony Rusher DPM Work Phone: [facility] CareDspsgrqpga73-47-2080 08:56-0500Body mass index (BMI) [Ratio]32.88 kg/m2Zjqxewp Rusher DPM Work Phone: [facility] CareKcimxltldj79-50-9110 08:56-0500Body lppusf05.93 kgAnthony Rusher DPM Work Phone: [facility] CareWjnctmjzfr91-58-1804 13:23-0500Body ejmzxw521.9 cmAnthony Rusher DPM Work Phone: [facility] CareFvbwycvrcw09-74-2761 13:23-0500Body mass index (BMI) [Ratio]32.88 kg/b4Ruugdrv Rusher DPM Work Phone: [facility] CareGwvkivspak00-82-5683 13:23-0500Body gdkeot71.93 kgAnthony Rusher DPM Work Phone: [address] [address]Otbesswgjp19-94-2537 10:00-0500Body .6 Gladis Adalid SOFTWARE REQUIREMENTS ENGINEER Work Phone: [address] [address]Hnmxswianz71-15-8685 10:00-0500Body mass index (BMI) [Ratio]32.72 kg/m2Landy Adalid SOFTWARE REQUIREMENTS ENGINEER Work Phone: [address] [address]Qudaqoelyt49-41-7744 10:00-0500Body temperature 97.81 [degF]Landy Adalid SOFTWARE REQUIREMENTS ENGINEER Work Phone: [address] [address]Sravzyyikv38-28-0479 10:00-0500Body kjjynu79.2 kg Landy Adalid SOFTWARE REQUIREMENTS ENGINEER Work Phone: [address] [address]Paxjgrwuds26-40-3530 10:00-0500Diastolic blood mm[Hg]Landy Adalid SOFTWARE REQUIREMENTS ENGINEER Work Phone: [address] [address]Idpgfiyqjz67-91-1288 10:00-0500Heart rate80 /min Landy Adalid SOFTWARE REQUIREMENTS ENGINEER Work Phone: [address] [address]Bbgxffucol34-91-7036 10:00-0500Respiratory rate20 /minLi Adalid SOFTWARE REQUIREMENTS ENGINEER Work Phone: [address] [address]Jvblvpwgsj97-83-8084 10:00-6798DaY3% (BldA) [Mass fraction]97 %Landy Adalid SOFTWARE REQUIREMENTS ENGINEER Work Phone: [address] [address]Frzfbaekwy28-95-1626 10:00-0500Systolic blood vlogfifx583 mm[Hg]Landy Adalid SOFTWARE REQUIREMENTS ENGINEER Work Phone: [facility] Healthcare Encounters Encounter DateEncounter TypeCare ProviderFacilityStart: 02-22-2025 End: 51-65-1749apmsaqrixsMzuu J Aichholz SOFTWARE REQUIREMENTS ENGINEER-C Work Phone: [facility] Work Phone: Start: 02-22-2025 End: 52-16-2581Gyiqbto encounter procedureLisa Estephanie Cordoba SOFTWARE REQUIREMENTS ENGINEER-C-[facility] Work Phone: Start: 61-96-8911Jkwnmuv encounter procedureLisa Cordoba SOFTWARE REQUIREMENTS ENGINEER-C Work Phone: [facility]: 29-66-2799Bon- patient / Non-visitLisa Estephanie Cordoba SOFTWARE REQUIREMENTS ENGINEER-C-[facility] Work Phone: Start: 01-12-2025 End: 87-77-4493Vluqfw flowsheetLisa Garrettholz SOFTWARE REQUIREMENTS ENGINEER Work Phone: [facility] FMStart: 01-12-2025 End: 24-64-4641Vdlavc flowsheetLisa Garrettholz SOFTWARE REQUIREMENTS ENGINEER Work Phone: [facility] FMStart: 01-12-2025 End: 44-31-3209Tpqwjs outpatient visit 15 minutesLisa Tuckerholz SOFTWARE REQUIREMENTS ENGINEER Work Phone: [facility] FMComment on above:RAFFI (generalized anxiety disorder) (Primary Dx); Elevated blood pressure readingStart: 01-12-2025 End: 54-70-7204licqeceglzDLKS GARRETTHOLZNot AvailableStart: 10-06-2024 End: 52-83-9408Xhzmdhauu Result EncounterLisa Aichholz SOFTWARE REQUIREMENTS ENGINEER Work Phone: [facility] External Department UnsolicitedStart: 10-06-2024 End: 09-47-3110Sphvyvcjg Result EncounterLisa Garrettholz SOFTWARE REQUIREMENTS ENGINEER Work Phone: [facility] External Department UnsolicitedStart: 09-27-2024 End: 99-33-2569Hkomeyuyh Result EncounterLisa Garrettholz SOFTWARE REQUIREMENTS ENGINEER Work Phone: [facility] External Department UnsolicitedStart: 09-27-2024 End: 75-44-3106Cwsbldulw Result EncounterLisa Aichholz SOFTWARE REQUIREMENTS ENGINEER Work Phone: [facility] External Department UnsolicitedStart: 08-03-2024 End: 69-43-8196Vzisxh flowsheetAnthony S Rusher DPM Work Phone: [facility] PODIATRYStart: 08-03-2024 End: 97-30-7405Pxaufa flowsheetAnthony S Rusher DPM Work Phone: NO[facility] PODIATRYStart: 08-03-2024 End: 26-45-5831Hxboah outpatient visit 25 minutesAnthony S Rusher DPM Work Phone: NOMS PODIATRYComment on above:Plantar fasciitis (Primary Dx); Equinus contracture of right ankleStart: 08-03-2024 End: 27-29-8408lctvmzvbwhFPALXQF S RUSHERNot AvailableStart: 07-06-2024 End: 31-33-2478Jraxgt flowsheetAnthony S Rusher DPM Work Phone: [facility] PODIATRYStart: 07-06-2024 End: 66-96-4896Lzcawd flowsheetAnthony S Rusher DPM Work Phone: [facility] PODIATRYStart: 07-06-2024 End: 73-08-7147Xrahcz outpatient new 45 minutesAnthony S Rusher DPM Work Phone: NOMS PODIATRYComment on above:Plantar fasciitis (Primary Dx); Right foot pain; Equinus contracture of right ankleStart: 07-06-2024 End: 87-14-3897fgklbcxjvlGMDTKYM S RUSHERNot AvailableStart: 06-14-2024 End: 43-44-2967Vrthswhyq encounterLisa Cordoba SOFTWARE REQUIREMENTS ENGINEER Work Phone: [facility] CWM FMStart: 04-20-2024 End: 32-68-9084Lrtjwp flowsheetLandy Cordoba SOFTWARE REQUIREMENTS ENGINEER Work Phone: [facility] FMStart: 04-20-2024 End: 00-34-3243Urkiuo flowsheetLandy Cordoba SOFTWARE REQUIREMENTS ENGINEER Work Phone: [facility] FMStart: 04-20-2024 End: 22-14-3275Ddgdrqp encounter procedureLisa Cordoba SOFTWARE REQUIREMENTS ENGINEER Work Phone: NOAR HealthcareComment on above:Encounter for subsequent annual wellness visit (AWV) in Medicare patient (Primary Dx); Mixed hyperlipidemia (CMS/HCC); Encounter for screening mammogram for malignant neoplasm of breast; Colon cancer screening; Benign paroxysmal positional vertigo, unspecified lateralityStart: 04-20-2024 End: 22-50-6404vxjszhpzkcSIOU RODNEYZNot AvailableStart: 12-20-2021 End: 75-81-5766kosqqpphhoZKH LANDY ADALIDFacility:D7Onqpz: 11-27-2021 End: 70-48-6716scfduclqefTTI LANDY ADALIDFacility:W4Ljixl: 05-30-2021 End: 65-97-2387trcdcbnnpeXCKRKJ PRAVEENA ROSSFacility:H1 Procedures DateProcedureProcedure DetailPerforming ClinicianStart: 14-86-5078OT TOMOSYNTHESIS SCREENING BILisa Adalid SOFTWARE REQUIREMENTS ENGINEER Work Phone: Start: 10-64-1442UssifrylmylWiaz Adalid SOFTWARE REQUIREMENTS ENGINEER Work Phone: Start: 64-89-1077WRS CBC WITH AUTO DIFFLisa Adalid SOFTWARE REQUIREMENTS ENGINEER Work Phone: Start: 16-74-7721Uflfg calcaneus minimum 2 views Kylah BARCENASM Work Phone: Start: 12-97-4229CfhbevkcvepZgtg Aichholz SOFTWARE REQUIREMENTS ENGINEER Work Phone: Plan of Treatment DateCare ActivityDetailAuthorStart: 38-22-7777Djjubkupe for malignant neoplasm of breastMammogramNOAR HealthcareStart: 05-03-2025 End: 44-41-1900Oaudahe encounter xmfykmjwr29/02/2025 10:30 AM EST Office Visit [facility] [address] [place] [phone] Landy Cordoba NP [address] [place] [address] [facility] FMStart: 04-26-2025 End: 47-99-1156Bxhqzxd encounter gwliqunqb22/25/2025 10:30 AM EST Office Visit [facility] [address] [place] [address] Landy Cordoba, SOFTWARE REQUIREMENTS ENGINEER [address] [place] [address] [facility] FMStart: 11-19-2025Medicare Annual Wellness (AWV) Medicare Annual Wellness (AWV)[facility] HealthcareStart: 50-80-8103Jrlgoeadxkao Vaccine: 65+ Years (1 of 1 - PCV)Pneumococcal Vaccine: 65+ Years (1 of 1 - PCV) NOMS HealthcareComment on above:Postponed from 12/26/2019 (Patient Refused) Postponed from 2004 (Patient Refused)Start: 61-58-3459Miymwwhep vaccinationInfluenza Vaccine (#1)[facility] HealthcareStart: 01-12-2025 End: 11-67-0824Latagqv encounter dzudnqrba16/13/2025 9:40 AM EDT Office Visit [facility] [address] [place] [address] Landy Cordoba, SOFTWARE REQUIREMENTS ENGINEER [address] [place] [address] ArrivedNOMS CWM FMComment on above:ArrivedStart: 08-03-2024 End: 58-38-1678Chfwkew encounter procedureNOMS FH PODIATRYComment on above: ArrivedStart: 07-06-2024 End: 20-35-2375Zkeyofa encounter agcmbjmwh74/04/2025 1:30 PM EST Office Visit [facility] [address] [place] [phone] Kylah Preciado, DPM [address] [place] [address] ArrivedNOMS PODIATRYComment on above:ArrivedStart: 04-20-2024 End: 31-90-5546LIG W Auto Differential panel - BloodCBC and differential Lab Routine Benign paroxysmal positional vertigo, unspecified laterality Expected: 04/20/2024 (Approximate), Expires: 04/20/2025NOAR HealthcareComment on above: Expected: 04/20/2024 (Approximate), Expires: 04/20/2025Start: 04-20-2024 End: 80-22-0558Dulldtyqjpeyr metabolic 2000 panel - Serum or PlasmaComprehensive metabolic panel Lab Routine Mixed hyperlipidemia (CMS/HCC) Expected: 04/20/2024 (Approximate), Expires: 04/20/2025[facility] HealthcareComment on above:Expected: 04/20/2024 (Approximate), Expires: 04/20/2025Start: 04-20-2024 End: 33-24-0416UO Breast - bilateral ScreeningBilateral screening mammogram Imaging Routine Encounter for screening mammogram for malignant neoplasm of breast Expected: 04/20/2024 (Approximate), Expires: 06/20/2025[facility] Healthcare Work Phone: Comment on above:Expected: 04/20/2024 (Approximate), Expires: 06/20/2025Start: 04-20-2024 End: 27-08-7441Umvprnx encounter ifxksxvqc92/19/2024 10:00 AM EST Office Visit [facility] [address] [place] [address] Lanyd Cordoba NP [address] [place] [address] Encounter for subsequent annual wellness visit (AWV) in Medicare patient (Primary Dx); Mixed hyperlipidemia (CMS/HCC); Encounter for screening mammogram for malignant neoplasm of breast; Colon cancer screening; Benign paroxysmal positional vertigo, unspecified lateralityNOMS CWM FMComment on above:Encounter for subsequent annual wellness visit (AWV) in Medicare patient (Primary Dx); Mixed hyperlipidemia (CMS/HCC); Encounter for screening mammogram for malignant neoplasm of breast; Colon cancer screening; Benign paroxysmal positional vertigo, unspecified lateralityStart: 02-01-2024 Influenza vaccinationInfluenza Vaccine (#1)[facility] HealthcareStart: 12-26-2019 Pneumococcal Vaccine: 65+ Years (1 of 1 - PCV)Pneumococcal Vaccine: 65+ Years (1 of 1 - PCV)[facility] HealthcareStart: 94-17-3523Hrsbeydgs for malignant neoplasm of breastMammogramNOAR HealthcareStart: 07-26-1955Medicare Annual Wellness (AWV) Medicare Annual Wellness (AWV)[facility] HealthcareStart: 92-77-0804Lyfsgvoqi for malignant neoplasm of colonNOMS [facility] Immunizations Immunization DateImmunizationNotesCare JozteoqeMitrwsou05-19-7240Wkvdmilup, High-dose Seasonal, Quadrivalent, Preservative FreeLisa Aichholz SOFTWARE REQUIREMENTS ENGINEER Work Phone: [facility] CareIwbmzvlqcw65-04-0819iazefnttx virus vaccine, unspecified formulationLisa Aichholz SOFTWARE REQUIREMENTS ENGINEER Work Phone: [facility] CareOdjzkvtnjn66-72-5302qtecfq vaccine recombinant Alndy Aichholz SOFTWARE REQUIREMENTS ENGINEER Work Phone: [facility] CareIuugekddcf13-15-9475dhmnvqbjqkin vaccine, unspecified formulationLisa Aichholz SOFTWARE REQUIREMENTS ENGINEER Work Phone: [facility] CareAxczjiczwt11-95-3734Xgcdndxwm, High-dose Seasonal, Quadrivalent, Preservative FreeLisa Aichholz SOFTWARE REQUIREMENTS ENGINEER Work Phone: [facility] CarePrsjccgkqa03-66-2223osiztn vaccine recombinant Landy Aichholz SOFTWARE REQUIREMENTS ENGINEER Work Phone: [facility] CareHspqtagjsh25-93-4704lgxrseqcg virus vaccine, unspecified formulationLisa Aichholz SOFTWARE REQUIREMENTS ENGINEER Work Phone: [facility] CareAbjfgpnwah48-97-6411Gndbgcocu, High-dose Seasonal, Quadrivalent, Preservative FreeLisa Aichholz SOFTWARE REQUIREMENTS ENGINEER Work Phone: [facility] CareBbpueowprw86-24-7175Nndyicqcb, High-dose Seasonal, Quadrivalent, Preservative FreeLisa Aichholz SOFTWARE REQUIREMENTS ENGINEER Work Phone: [facility] CareCltlrkmhou33-94-9166Rrxoowl VHXL-PcN-1Xgww Aichholz SOFTWARE REQUIREMENTS ENGINEER Work Phone: [facility] CareEtawupshix18-29-8735Jfgivde SARS-CoV-2 VaccinationLisa Aichholz SOFTWARE REQUIREMENTS ENGINEER Work Phone: [facility] CareRdfcoyzeku63-87-0602Ibtzkmp MKQT-RfC-1Igtp Aichholz SOFTWARE REQUIREMENTS ENGINEER Work Phone: [facility] CareIawjeekniq11-64-8253Hlszfco SARS-CoV-2 VaccinationLisa Aichholz SOFTWARE REQUIREMENTS ENGINEER Work Phone: [facility] CareQzbohkybti76-69-0394xsszrrdah, injectable, quadrivalent, preservative freeLisa Aichholz SOFTWARE REQUIREMENTS ENGINEER Work Phone: [facility] CareZbmkerdfgz75-09-0272Ijesxutf, quadrivalent, recombinant, injectable influenza vaccine, preservative freeLisa Aichholz SOFTWARE REQUIREMENTS ENGINEER Work Phone: [facility] Payers DatePayer CategoryPayerPolicy [id number] Health InsuranceAARP [id number] 2020MedicareMEDICARE [id number] [id number] [id number] 2.16.840.1.371522.3.57[id number] 2.16.840.1.377412.3.57[id number] 2.16.840.1.938673.3.57[id number] 2.16.840.1.757689.3.57[id number] 2.16.840.1.164766.3.57[id number] 2.16.840.1.046449.3.57[id number] 2.16840.1.315662.3.579.2.1259 Social History DateTypeDetailFacilityStart: 14-98-5556Zbwsuan smoking status NHISNever smoked tobaccoNOMS HealthcareStart: 46-45-5171Pmfdfug use and exposureSmokeless tobacco non-userNOMS HealthcareStart: 04-20-2024 End: 60-63-4107Tlexlae of Social functionNOMS HealthcareStart: 04-20-2024 End: 93-46-3246Xmsuxpj use panelNOMS HealthcareStart: 20-81-4641Riq assigned at birthNot on fileNOMS HealthcareTobacco smoking status NHISUnknown if ever smoked [facility] Work Phone: SexFemale (finding)[facility] Start: 81-47-1061Cnu Assigned At [facility] Clinical Notes 06-05-2021 to 01-12-2025 Note Date & ZyjfUanxEwitrglt65-80-5600 History of Present illness Narrative* Landy Cordoba NP - 01/12/2025 10:17 AM EDTAssociated Problem(s): Elevated blood pressure reading Low salt diet Check blood pressure daily and record Stop by office in 10 days for BP check * Landy Cordoba NP - 01/12/2025 10:17 AM EDTAssociated Problem(s): RAFFI (generalized anxiety disorder) Start buspar I do think BP is related to anxiety Set boundary on freq and time spent at long term Fu in 4 weeks Relaxation techinques * RODNEY COELLO - 01/12/2025 9:40 AM EDT Headache-2 wks Worse through out the door Head literally pounding Blurry vision BP 169/70s arm cuff Pt was taking 2 200mg IBU was not helping No pressure or pain in the chest No palpitations Right hand tingling No dizziness or lightheadedness No pain in the shoulder blades or upper back Pt has been more stressed since beginning of November- mother's cognitive states has declined I believept stated she is now in a long term * Landy Cordoba NP - 01/12/2025 9:40 AM EDT Images from the original note were not included. Angeles Mullins is a 69 y.o. female presents with chief complaint of Hypertension (Concern/) HPI: Headache-2 wks Worse through out the day Head literally pounding Blurry vision BP 169/70s arm cuff Pt was taking 2 200mg IBU was not helping No pressure or pain in the chest No palpitations Right hand tingling No dizziness or lightheadedness No pain in the shoulder blades or upper back Pt has been more stressed since beginning of November- mother's cognitive states has declined I believept stated she is now in a long term No hx HTN, mother had stroke, has been going all day staying 4 hours feels overwhelmed SUBJECTIVE: MEDICATIONS: No current outpatient medications ALLERGIES: Allergies Allergen Reactions Codeine GI intolerance REVIEW OF SYMPTOMS: Review of Systems Constitutional: Negative for appetite change, chills and fever. HENT: Negative for congestion, ear pain and sore throat. Eyes: Negative for pain, discharge, redness and visual disturbance. Respiratory: Negative for cough and wheezing. Cardiovascular: Negative for leg swelling. Gastrointestinal: Negative for abdominal pain, blood in stool, constipation, diarrhea, nausea and vomiting. Genitourinary: Negative for difficulty urinating, dysuria and frequency. Musculoskeletal: Negative for arthralgias, back pain, joint swelling and myalgias. Skin: Negative for rash and wound. Neurological: Positive for dizziness and headaches. Negative for tremors, seizures and syncope. Psychiatric/Behavioral: Negative for behavioral problems, self-injury and suicidal ideas. The patient is nervous/anxious. Hematological: Does not bruise/bleed easily. Endocrine: Negative for polydipsia, polyphagia and polyuria. Allergic/Immunologic: Negative for environmental allergies and food allergies. PAST MEDICAL HISTORY No past medical history on file. Past Surgical History: Procedure Laterality Date SECTION, CLASSIC CHOLECYSTECTOMY TOTAL ABDOMINAL HYSTERECTOMY family history is not on file. OBJECTIVE: Visit Vitals Smoking Status Never Physical Exam Vitals and nursing note reviewed. Constitutional: General: She is not in acute distress. Appearance: Normal appearance. She is ill-appearing. HENT: Head: Normocephalic and atraumatic. Right Ear: Tympanic membrane, ear canal and external ear normal. Left Ear: Tympanic membrane, ear canal and external ear normal. Nose: Nose normal. No congestion or rhinorrhea. Mouth/Throat: Mouth: Mucous membranes are moist. Pharynx: No oropharyngeal exudate or posterior oropharyngeal erythema. Eyes: Extraocular Movements: Extraocular movements intact. Conjunctiva/sclera: Conjunctivae normal. Neck: Vascular: No carotid bruit. Cardiovascular: Rate and Rhythm: Normal rate and regular rhythm. Pulses: Normal pulses. Heart sounds: Normal heart sounds. No murmur heard. Pulmonary: Effort: Pulmonary effort is normal. Breath sounds: Normal breath sounds. No wheezing or rhonchi. Abdominal: General: Bowel sounds are normal. There is no distension. Palpations: Abdomen is soft. There is no mass. Tenderness: There is no abdominal tenderness. Musculoskeletal: General: Normal range of motion. Cervical back: Neck supple. Right lower leg: No edema. Left lower leg: No edema. Skin: General: Skin is warm and dry. Capillary Refill: Capillary refill takes 2 to 3 seconds. Findings: No rash. Neurological: General: No focal deficit present. Mental Status: She is alert and oriented to person, place, and time. Cranial Nerves: No cranial nerve deficit. Comments: Neg ulnar Psychiatric: Mood and Affect: Mood normal. Behavior: Behavior normal. Thought Content: Thought content normal. Judgment: Judgment normal. ASSESSMENT AND PLAN: No follow-ups on file. Problem List Items Addressed This Visit RAFFI (generalized anxiety disorder) - Primary Start buspar I do think BP is related to anxiety Set boundary on freq and time spent at long term Fu in 4 weeks Relaxation techinques Relevant Medications busPIRone (Buspar) 5 MG tablet Elevated blood pressure reading Low salt diet Check blood pressure daily and record Stop by office in 10 days for BP check documented in this [facility]08-13-2025 Instructions* Patient Instructions* Landy Cordoba NP - 01/12/2025 9:40 AM EDT Check blood pressure daily and record, stop by office in 01/24/25 for blood pressure check, bring monitor so we can check Relaxation: walking, quiet environment documented in this [facility]03-04-2025 History of Present illness Narrative* Kylah Preciado DPM - 08/03/2024 9:00 AM EST Images from the original note were not included. Subjective Patient ID: Angeles Mullins is a 68 y.o. female who presents for Follow-up (Pt is here today for FUVPlantar fasciitis she states there has been improvement. Still some discomfort by the end of abusy day, her foot will feel hot, aches. She just put new Powerstep inserts in over the weekend, she feels the discomfort is the break-in period). HPI This is an established patient who returns to clinic for follow up evaluation of plantar fasciitis of the right foot. Patient notes significant improvement in symptomatology. She had no pain for awhile and states that when she started trying to introduce new orthotic she started getting some soreness in the heel and arch area. Review of Systems Constitutional: Negative for activity change and appetite change. Respiratory: Negative for chest tightness and shortness of breath. Cardiovascular: Negative for chest pain. Musculoskeletal: Positive for arthralgias and gait problem. Skin: Negative for color change and wound. Neurological: Negative for weakness and numbness. Psychiatric/Behavioral: Negative for agitation and behavioral problems. Hematological: Does not bruise/bleed easily. Endocrine: Negative for cold intolerance and heat intolerance. Allergic/Immunologic: Negative for immunocompromised state. Past medical History No past medical history on file. Medications Current Outpatient Medications: meloxicam (Mobic) 15 MG tablet, Take 1 tablet (15 mg) by mouth Daily, Disp: 90 tablet, Rfl: 0 Allergies Codeine Past Surgical History Past Surgical History: Procedure Laterality Date SECTION, CLASSIC CHOLECYSTECTOMY TOTAL ABDOMINAL HYSTERECTOMY Family History No family history on file. Objective Physical Exam HENT: Head: Normocephalic and atraumatic. Cardiovascular: Pulses: Normal pulses. Pulmonary: Effort: Pulmonary effort is normal. No respiratory distress. Abdominal: Palpations: There is no mass. Musculoskeletal: Cervical back: No rigidity. Comments: Weightbearing examination reveals slight planus morphology. She is able to perform a double heel rise test without tenderness. Right foot: There is mild tenderness at the medial calcaneal tubercle. Negative heel squeeze test. Muscle strength 5/5 for all quadrants. Ankle dorsiflexion 0 degrees with the knee extended, flexed. Skin: Capillary Refill: Capillary refill takes less than 2 seconds. Findings: No lesion or rash. Neurological: Mental Status: She is alert. Comments: No loss of protective sensation, gross sensation intact. Psychiatric: Mood and Affect: Mood normal. Behavior: Behavior normal. Assessment/Plan ICD-10-CM 1. Plantar fasciitis M72.2 meloxicam (Mobic) 15 MG tablet 2. Equinus contracture of right ankle M24.571 Patient examined and evaluated. Reviewed previous imaging studies in detail. She has responded verywell to conservative treatment and notes improvement but still does have some sensitivity on a daily basis. She has very minimal tenderness to palpation and based on her improvement I do not recommend a cortisone injection. Discussed treatment options going forward. At this time we elected to move forward with a prescription for meloxicam to take on an as- needed basis. If symptoms persist daily Irecommend taking nonsteroidal anti- inflammatory daily for 2-4 weeks until symptomatology has resolved. I then recommend taking it on an as-needed basis. She will continue daily stretching exercises and use of power step orthotics and avoid barefoot walking. At this time we will follow up as needed. This note was created with the assistance of a speech recognition program. While intending to generate a timely document that accurately reflects the content of the visit, no guarantee can be provided that every grammatical or spelling mistake has been or will be identified or corrected. Thank you for your understanding. Kylah Preciado DPM documented in this encounterSSM Health [id number] History of Present illness Narrative* Kylah Preciado DPM - 07/06/2024 1:30 PM EST Images from the original note were not included. Subjective Patient ID: Angeles Mullins is a 68 y.o. female who presents for Foot Pain (Angeles Mullins 68yo New Patient presents for right foot pain. NKI. Recent flare up started 06/28/24. Pain with weightbearing. Pain is the same as in 2020. Patient has been elevating.SS 8.5). HPI This is a new patient who presents to clinic with concern of right foot pain. Patient states that this has been going on for about a week. Pain described as sharp, stabbing in nature. Worse in the plantar heel. She has exquisite pain when getting out of bed in the morning. Symptoms then seem to loosen up slightly but as she goes throughout her day she will get severe pain in the heel. No treatment tried. Review of Systems Constitutional: Negative for activity change and appetite change. Respiratory: Negative for chest tightness and shortness of breath. Cardiovascular: Negative for chest pain. Musculoskeletal: Positive for arthralgias and gait problem. Skin: Negative for color change and wound. Neurological: Negative for weakness and numbness. Psychiatric/Behavioral: Negative for agitation and behavioral problems. Hematological: Does not bruise/bleed easily. Endocrine: Negative for cold intolerance and heat intolerance. Allergic/Immunologic: Negative for immunocompromised state. Past medical History History reviewed. No pertinent past medical history. Medications Current Outpatient Medications: meloxicam (Mobic) 15 MG tablet, Take 1 tablet (15 mg) by mouth Daily for 21 days, Disp: 21 tablet, Rfl: 0 methylPREDNISolone (Medrol Dospak) 4 MG tablets, Take as directed on package., Disp: 21 tablet, Rfl: 0 Allergies Codeine Past Surgical History Past Surgical History: Procedure Laterality Date SECTION, CLASSIC CHOLECYSTECTOMY TOTAL ABDOMINAL HYSTERECTOMY Family History No family history on file. Objective Physical Exam HENT: Head: Normocephalic and atraumatic. Cardiovascular: Pulses: Normal pulses. Pulmonary: Effort: Pulmonary effort is normal. No respiratory distress. Abdominal: Palpations: There is no mass. Musculoskeletal: Cervical back: No rigidity. Comments: Weightbearing examination reveals slight planus morphology. She is able to perform a double heel rise test without tenderness. Right foot: Isolated and maximal tenderness at the medial calcaneal tubercle. Weakly positive heel squeeze test. Muscle strength 5/5 for all quadrants. Ankle dorsiflexion 0 degrees with the knee extended, flexed. Skin: Capillary Refill: Capillary refill takes less than 2 seconds. Findings: No lesion or rash. Neurological: Mental Status: She is alert. Comments: No loss of protective sensation, gross sensation intact. Psychiatric: Mood and Affect: Mood normal. Behavior: Behavior normal. XR calcaneus 2 views right Imaging Result: Lateral, calcaneal axial views are weight-bearing. Slight rearfoot varus. There is decreased calcaneal inclination, increased talar declination. Enthesophyte and calcifications noted at the insertionof the plantar fascia. Appears to be dorsal talonavicular step-off consistent with spring ligament tear, likely chronic. Assessment/Plan ICD-10-CM 1. Plantar fasciitis M72.2 XR calcaneus 2 views right meloxicam (Mobic) 15 MG tablet methylPREDNISolone (Medrol Dospak) 4 MG tablets 2. Right foot pain M79.671 XR calcaneus 2 views right 3. Equinus contracture of right ankle M24.571 Patient was examined and evaluated. 2 views of the affected foot were taken in office today and I discussed my findings. Causes and treatment options for plantar fasciitis were covered in detail. I discussed and stressed the importance of stretching exercises. I recommended a home exercise program f ocusing on Stretching the Achilles complex as well as anti-inflammatory modalities. Home stretchingprogram was printed off and given to the patient today. I have instructed that this program be performed at least 3 times daily for the next month. I have recommended an anti-inflammatory regimen consisting of a week-long steroid taper followed by 3 weeks of an anti-inflammatory. I have sent these prescriptions appropriately. I have also recommended nightly ice water bottle massage with contrast bathing. I have discussed the importance of supportive shoe gear and recommended orthotic therapy. Patient was dispensed power step orthotics today. We will see how these modalities work for the next m onth and follow-up in 1 month. This note was created with the assistance of a speech recognition program. While intending to generate a timely document that accurately reflects the content of the visit, no guarantee can be provided that every grammatical or spelling mistake has been or will be identified or corrected. Thank you for your understanding. Kylah Preciado DPM documented in this encounterSSM Health [id number] Telephone encounter Note* Telephone Encounter - Landy Cordoba NP - 06/14/2024 8:38 AM EST Please contact pt, since we are passed the holidays, is she ready for a referral for a colonoscopy?And what hospital would she want this done at? [place] [facility] [id number] Miscellaneous Notes* Telephone Encounter - Landy Cordoba NP - 06/14/2024 8:38 AM EST Please contact pt, since we are passed the holidays, is she ready for a referral for a colonoscopy?And what hospital would she want this done at? [place] documented in this encounterSSM Health [id number] History of Present illness Narrative* Landy Cordoba NP - 04/20/2024 10:43 AM ESTAssociated Problem(s): Benign paroxysmal positional vertigo No acute symptoms * Landy Cordoba NP - 04/20/2024 10:00 AM EST Images from the original note were not included. Angeles Mullins is a 68 y.o. female presents with chief complaint of Medicare Annual Wellness Visit Initial HPI: Diet: variety Activity: walk daily Mental Health Concerns: none Falls in the last year: none Still driving: yes Do you pay your bills: yes Any hearing problems: no Any Vision problems: wears glasses, Pt Tim Any Hospitalizations in the last year: none Specialist: eye dr, [facility] HCPOA/Living Will: thinks has living will, not sure about HCPOA Concerns: none SUBJECTIVE: MEDICATIONS: No current outpatient medications ALLERGIES: Allergies Allergen Reactions Codeine GI intolerance REVIEW OF SYMPTOMS: Review of Systems Constitutional: Negative for appetite change, chills and fever. HENT: Negative for congestion, ear pain and sore throat. Eyes: Negative for pain, discharge, redness and visual disturbance. Respiratory: Negative for cough, shortness of breath and wheezing. Cardiovascular: Negative for chest pain, palpitations and leg swelling. Gastrointestinal: Negative for abdominal pain, blood in stool, constipation, diarrhea, nausea and vomiting. Genitourinary: Negative for difficulty urinating, dysuria and frequency. Musculoskeletal: Negative for arthralgias, back pain, joint swelling and myalgias. Skin: Negative for rash and wound. Neurological: Negative for dizziness, tremors, seizures, syncope and headaches. Psychiatric/Behavioral: Negative for behavioral problems, self-injury and suicidal ideas. The patient is not nervous/anxious. Hematological: Does not bruise/bleed easily. Endocrine: Negative for polydipsia, polyphagia and polyuria. Allergic/Immunologic: Negative for environmental allergies and food allergies. PAST MEDICAL HISTORY No past medical history on file. Past Surgical History: Procedure Laterality Date SECTION, CLASSIC CHOLECYSTECTOMY TOTAL ABDOMINAL HYSTERECTOMY family history is not on file. OBJECTIVE: Visit Vitals Wt 174 lb 9.6 oz BMI 32.72 kg/m Smoking Status Never BSA 1.85 m Physical Exam Vitals and nursing note reviewed. Constitutional: General: She is not in acute distress. Appearance: Normal appearance. HENT: Head: Normocephalic and atraumatic. Right Ear: External ear normal. Left Ear: External ear normal. Nose: Nose normal. Mouth/Throat: Mouth: Mucous membranes are moist. Eyes: Extraocular Movements: Extraocular movements intact. Conjunctiva/sclera: Conjunctivae normal. Cardiovascular: Rate and Rhythm: Normal rate and regular rhythm. Pulses: Normal pulses. Heart sounds: Normal heart sounds. Pulmonary: Effort: Pulmonary effort is normal. Breath sounds: Normal breath sounds. Abdominal: General: Bowel sounds are normal. There is no distension. Palpations: Abdomen is soft. There is no mass. Tenderness: There is no abdominal tenderness. Musculoskeletal: General: Normal range of motion. Cervical back: Normal range of motion and neck supple. Skin: General: Skin is warm and dry. Capillary Refill: Capillary refill takes 2 to 3 seconds. Findings: No rash. Neurological: General: No focal deficit present. Mental Status: She is alert and oriented to person, place, and time. Psychiatric: Mood and Affect: Mood normal. Behavior: Behavior normal. Thought Content: Thought content normal. Judgment: Judgment normal. ASSESSMENT AND PLAN: No follow-ups on file. Problem List Items Addressed This Visit Benign paroxysmal positional vertigo Relevant Orders CBC and differential Mixed hyperlipidemia (CMS/HCC) Relevant Orders Comprehensive metabolic panel Encounter for subsequent annual wellness visit (AWV) in Medicare patient - Primary Reviewed Ht/Wt/BMI Recommend eye exam yearly Recommend dental exams twice a year Balance work/leisure activities Exercises is recommended most days of the week (appropriate as chronic conditions allow) Follow up yearly and prn Encounter for screening mammogram for malignant neoplasm of breast Relevant Orders Bilateral screening mammogram Colon cancer screening Colon cancer screening options were discussed with patient, as well as why colon cancer screening is indicated. Options are Colonoscopy: direct visualization, every 10 years (unless indicated more frequently), risks and benefits were discussed Cologuard: every 3 years, risks and benefits were discussed , contraindications were discussed (family hx of colon cancer, colon polyps) Patient has elected to: ' * Landy Cordoba NP - 04/20/2024 6:37 AM ESTAssociated Problem(s): Colon cancer screening Colon cancer screening options were discussed with patient, as well as why colon cancer screening is indicated. Options are Colonoscopy: direct visualization, every 10 years (unless indicated more frequently), risks and benefits were discussed Cologuard: every 3 years, risks and benefits were discussed , contraindications were discussed (family hx of colon cancer, colon polyps) Patient has elected to: d/t family hx colonoscopy would be the test of choice * Landy Cordoba NP - 04/20/2024 6:37 AM ESTAssociated Problem(s): Encounter for subsequent annual wellness visit (AWV) in Medicare patient Reviewed Ht/Wt/BMI Recommend eye exam yearly Recommend dental exams twice a year Balance work/leisure activities Exercises is recommended most days of the week (appropriate as chronic conditions allow) Follow up yearly and prn documented in this encounterSSM Health [id number] Instructions* Patient Instructions* Landy Cordoba NP - 04/20/2024 10:00 AM EST Follow up in a year I will call you in June about an appt for colonoscopy documented in this encounterSSM Health [id number] NoteChief Complaint consultation for RUQ pain HPI Staff 65 year old female presents on consultation from Dr. Garcia for RUQ pain with nausea and vomiting after eating fried food. [place] like there was a tight belt wrapped around her upper abdomen. Pain lastedfor 2 hrs. Experienced two days of loose stools following this episode. RUQ US completed 05/30 withsludge. History of Present Illness 65 yo female referred from Dr Garcia for upper abdominal pain, N/V; abnormal GB US; patient had acuteonset of upper abdominal pain/pressure after eating chicken nuggets and fries; had several episodesof N/V of food that she had eaten; pain improved after that; lasted about 2 hours; no problems since then, mild loose stools right after that episode; had milder episode several weeks ago that lastedabout 20 minutes, no N/V; has frequent episodes of indigestion and epigastric pain if lies down after eating; improved sitting up; has started eating earlier with improvement in symptoms; recent GB US with small area of sludge in gallbladder, no wall thickening or inflammation; cbd 8 mm. no h/o mynor dice or pancreatitis; no blood work during or after recent episode; no fevers; no wt loss; abdominal operations significant for , tubal ligation and JUVENTINO. no asa or NSAID use; no fmhx of GI malignancy or IBD. Review of Systems PHQ Score Initial Depression Screen Score: 0 ROS - Provider Constitutional: no fever, no sweats, no weight loss. Eyes: no glasses, no blurred vision, no visual loss. ENMT: no dentures, no hoarseness, no swallowing difficulties, no hearing loss, no ear infection(s),no nose bleeds. Cardiovascular: normal blood pressure, no chest pain, regular heartbeat, no heart murmur. Respiratory: no shortness of breath, no cough, no asthma, no wheezing. Gastrointestinal: yes nausea, yes vomiting, no diarrhea, no constipation, no blood in stool, no change in bowel habits, yes abdominal pain, no hepatitis. Genitourinary: no kidney stones, no urine infection, no dysuria. Musculoskeletal: no pain, no weakness. Skin: no changing moles, no rash, no skin lumps. Neurologic: no seizures, no epilepsy, no headache. Psychiatric: no emotional or psychiatric problem. Heme/Lymph: no bleeding problems, no anemia, no blood clots, no transfusions. Allergy/Immunologic: no swollen lymph nodes/glands, no IV drug abuse. Other: Additional ROS info: Except as noted in the above Review of Systems and in the History of Present Illness, all other systems have been reviewed and are negative or noncontributory. Physical Exam Vitals & Measurements T: 36.3 ?C(Temporal Artery) HR: 72(Peripheral) RR: 16 BP: 134/86 HT: 158 cm HT: 158.0 cm WT: 78 kg WT: 78.0 kg BMI: 31.24 HEENT: normal conjunctiva, sclera clear, no scleral icterus, EOM intact, PERRLA, oral mucosa moist without lesions. Neck: trachea midline, no mass, symmetric, no thyromegaly or nodules, no adenopathy Respiratory: lungs CTA, respirations non labored. Cardiovascular: regular rate and rhythm, no murmur, no pedal edema or varicosities. Gastrointestinal: soft, non distended, mild tenderness, epigastrium no masses, no palpable hernias,diastasis recti no, no hepatosplenomegaly; normal bs Lymphatic: no cervical adenopathy, Musculoskeletal: normal gait, digits and nails without infection, nodes, cyanosis, clubbing. Skin: no rashes, no lesions, no ulcers, no subcutaneous nodules, induration. Psychiatric/Neuro: oriented to time, place, person, judgement normal, affect appropriate for age, insight intact, no focal deficits. Tests: x-rays reviewed, review of old records completed, Assessment/Plan 1. Biliary sludge determined by ultrasound (K83.8: Other specified diseases of biliary tract) no evidence of stones or inflammation; cbd upper limits of normal; possibly passed small stone, or episode of dyskinesia; symptoms completely resolved now; recommend low fat diet, if recurrent symptoms will require further work up, possible abd ct or MRCP, EGD; call with problems/questions. 2. Epigastric pain (R10.13: Epigastric pain) see # 1 3. Abdominal pain, RUQ (R10.11: Right upper quadrant pain) see # 1 4. BMI 31.0-31.9,adult (Z68.31: Body mass index [BMI] 31.0-31.9, adult) recommend low fat diet and exercise; Follow-up No qualifying data available Problem List/Past Medical History Ongoing Abdominal pain, RUQ Biliary sludge determined by ultrasound BMI 31.0-31.9,adult BPPV (benign paroxysmal positional vertigo) Epigastric pain Historical No qualifying data Procedure/Surgical History section, Hysterectomy, Ovarian cystectomy. Medications No active medications Allergies codeine (Vomiting) Social History Alcohol - Denies Alcohol Use, 06/05/2021 Substance Abuse - Denies Substance Abuse, 06/05/2021 Tobacco Never (less than 100 in lifetime) Tobacco Use:. Never Smokeless Tobacco Use:., 06/05/2021 Family History Acute myocardial infarction: Brother. Hypertension: Mother (more content not included)...[facility] Comment on above:Result Comment: Electronically Signed By: CARLOS RICH, Rowdy Lala\Date and Time Signed: 06/05/21 16:51 ESTEvaluation note* Diagnosis Encounter for subsequent annual wellness visit (AWV) in Medicare patient- Primary Mixed hyperlipidemia ([facility]) Mixed hyperlipidemia Encounter for screening mammogram for malignant neoplasm of breast Colon cancer screening Special screening for malignant neoplasms, colon Benign paroxysmal positional vertigo, unspecified laterality documented [facility]* Diagnosis Encounter for subsequent annual wellness visit (AWV) in Medicare patient- Primary Mixed hyperlipidemia ([facility]) Mixed hyperlipidemia Encounter for screening mammogram for malignant neoplasm of breast Colon cancer screening Special screening for malignant neoplasms, colon Benign paroxysmal positional vertigo, unspecified laterality Plantar fasciitis- Primary Plantar fascial fibromatosis Right foot pain Pain in soft tissues of limb Equinus contracture of right ankle [facility]* Diagnosis Encounter for subsequent annual wellness visit (AWV) in Medicare patient- Primary Mixed hyperlipidemia ([facility]) Mixed hyperlipidemia Encounter for screening mammogram for malignant neoplasm of breast Colon cancer screening Special screening for malignant neoplasms, colon Benign paroxysmal positional vertigo, unspecified laterality Plantar fasciitis- Primary Plantar fascial fibromatosis Equinus contracture of right ankle documented in this encounter [facility] Diagnosis Encounter for subsequent annual wellness visit (AWV) in Medicare patient- Primary Mixed hyperlipidemia Mixed hyperlipidemia Encounter for screening mammogram for malignant neoplasm of breast Colon cancer screening Special screening for malignant neoplasms, colon Benign paroxysmal positional vertigo, unspecified laterality RAFFI (generalized anxiety disorder)- Primary Generalized anxiety disorder Elevated blood pressure reading Elevated blood pressure reading without diagnosis of hypertension documented in this encounter [facility]* Diagnosis Onset Date Resolution Status Admit Date Essential hypertension acuteSeptember 2024 9:36amGAD (generalized anxiety disorder)acuteSept2024 9:36am [facility] Work Phone: Reason for referral (narrative)No reason for referral information availableElyria Memorial Hospital Work Phone: Summary Purpose Family History No Family History Records FoundNo Family History Records FoundNo Family History Records Found Advance Directives Advance Directive Response Recorded Date/ Time Advance Directives No January 5:16pm Chief Complaint and Reason for Visit Chief Complaint Admit Date 1M February 22, 2025 9:36am Reason for Visit Admit Date Essential hypertension February 22, 025 9:36am RAFFI (generalized anxiety disorder) Septe [facility] 2024 9:36am Additional Source Comments INFORMATION SOURCE (unrecogn ized section and content) DATE CREATED AUTHOR 06/23/2021 [facility] DATE CREATED AUTHOR AUTHOR'S ORGANIZ ATION 2021 [facility] DATE CREATED AUTHOR AUTHOR'S ORGANIZ ATION 01/13/2025 [facility] EPIC Care Teams (unrecognized sec tion and content) Team MemberRelationshipSpecialtyStart DateEnd Date Tomas Martinez MD [address] [place] [address] PCP - GeneralFamily Epalbxld70/19/24 Landy Cordoba NP [address] [place] [address] Nurse PractitionerFamily Medicine01/06/23Team MemberRelationshipSpecialtyStart DateEnd Date Tomas Martinez MD [address] [place] [address] PCP - GeneralFamily Myrqhtvf79/19/24 Landy Cordoba NP [address] [place] [address] [facility]01/06/23Team MemberRelationshipSpecialtyStart DateEnd Date Tomas Martinez MD [address] [place] [address] PCP - [facility]04/20/24 Landy Cordoba NP [address] [place] [address] Nurse PractitionerH[facility]01/06/23Team MemberRelationshipSpecialtyStart DateEnd Date Tomas Martinez MD [address] [place] [address] PCP - [facility]04/20/24 Landy Cordoba NP [address] [place] [address] Nurse PractitionerH[facility]01/06/23Team MemberRelationshipSpecialtyStart DateEnd Date Tomas Martinez MD [address] [place] [address] PCP - [facility]04/20/24 Landy Cordoba NP [address] [place] [address] Nurse PractitionerH[facility]01/06/23Team MemberRelationshipSpecialtyStart DateEnd Date Tomas Martinez MD [address] [place] [address] PCP - [facility]04/20/24 Landy Cordoba NP [address] [place] [address] Nurse PractitionerH[facility]01/06/23Team MemberRelationshipSpecialtyStart DateEnd Date Tomas Martinez MD [address] [place] [address] PCP - [facility]04/20/24 Landy Cordoba NP [address] [place] [address] Nurse PractitionerH[facility]ham [facility]01/06/23 Team Status: Active Member Role Status Dates MARINA Hinojosa Primary Care Provider Active Team Status: Active Member Role Status Dates MARINA Hinojosa Attending Provider Active Start: February 03, 2025 Team Status: Inactive Member Role Status Dates MARINA Hinojosa Primary Care Provider Active Start: February 22, 2025 End: February 22, 2025Landy Cordoba NP-[facility] ProviderActiveStart: February 22, 2025 End: February 22, 2025 Reason for Visit (unrecogniz ed section and content) ReasonCommentsMedicare Annual Wellness Visit InitialReasonCommentsFoot PainMarla Bogner 68yo New Patient presents for right foot pain. NKI. Recent flare up started 06/28/24. Pain with weightbearing. Pain is the same as in 2020. Patient has been elevating.SS 8.5ReasonCommentsFollow-upPt is here today for FUV Plantar fasciitis she states there has been improvement. Still some discomfort by the end of abusy day, her foot will feel hot, aches. She just put new Powerstep inserts in over the weekend, she feels the discomfort is the break-in period ReasonCommentsHypertensionConcern Goals (unrecognized section and content) Goals may be documented in a n alternate section FOR RECORDS PERTAINING TO PATIENTS WHO ARE OR HAVE BEEN ENROLLED IN A CHEMICAL DEPENDENCY/SUBSTANCEABUSE PROGRAM, SOME INFORMATION MAY BE OMITTED. This clinical summary was aggregated from multiple sources. Caution should be exercised in using it in the provision of clinical care. This summary normalizes information from multiple sources, and as a consequence, information in this document may materially change the coding, format and clinical context of patient data. In addition, data may be omitted in some cases. CLINICAL DECISIONS SHOULD BE BASED ON THE PRIMARY CLINICAL RECORDS. [facility] [employer] [facility]. provides no warranty or guarantee of the accuracy or completeness of information in this document.
--- OUTSIDE RECORDS SUMMARY | 2025-03-22 06:52 | XMS_ITS | Patient Health Record ---
Author Organization [facility] in [place] Address [address] [place] [address] Care Team Providers Care Verifying Specialist Name Role Phone Landy Cordoba CNP Primary Care Provider Unavail able Allergies Allergen (clinical drug ingredient) Drug/Non Drug Allergy documented on EMR Reaction Allergy Type Onset Date Status codeine Codeine vomiting Drug Allergy Active Reason For Referral No Information Medications Medication SIG (Take, Route, Frequency, Duration) Notes Start Date End Date Status Omeprazole Active Social History Tobacco Use: Social History Observation Description Date Details (start date - stop date) Never Smoker NA - NA Tobacco Use/Smoking Question Answer Notes Patient is a nonsmoker Problems Problem Type SNOMED Code ICD Code Onset Dates Problem Status W/U Status Risk Notes Problem Cholelithiasis witho ut obstruction (40336983) Calculus of gallbladder without cholecystitis without obstruction (K80.20) ActiveconfirmedProblemHistory of excision of intestinal structure (218373934) Acquired absence of other specified parts of digestive tract (Z90.49)Active confirmedProblemCholelithiasis (187365498)Cholelithiasis (K80.20)Activeconfirmed Plan Of Treatment Pending Test Test Name Order Date General Pathology 11/26/2022 Insurance Providers Payer Name Payer Address Payer Phone Subscriber Number Group Number Insured Name Patient Relationship to Insured Coverage Start Date Coverage End Date [place] [address] [place] [address] [id number] Joel Luceroelf - patient is the [id number] 2019[facility] [address] [place] [phone] Joel Lawsonelf - patient is the [id number] 2019 Medical (General) History Medical History History ICD Code abdominal pain Surgical History Surgery Date(Month/Year) section 1982 hysterectomy 2003 cyst removed from ovary 1998 D&C 1981 robotic cholecystectomy with ICG cholang iogram 10/2022
--- OUTSIDE RECORDS SUMMARY | 2025-03-22 06:52 | XMS_ITS | Clinical Summary ---
Author Organization [facility] Address [id number] [address] [place] [address] Care Team Providers Care Promotional Model Name Role Phone Unavailable Primary Care Provider Unavailabl e Social History Tobacco UseTypesPacks/DayYears UsedDateSmoking Tobacco: Never AssessedChildcare AnswerDate KmpaxbysScnxjdxelXgnwmol12/12/2019EmploymentAnswerDate Recorded RinhomlpbhUmoztjj26/12/2019CommentsUnknownSex and Gender Information ValueDate RecordedSex Assigned at BirthNot on fileLegal KvxSkblbl66/06/2015 11:38 AM EDTGender IdentityNot on fileSexual OrientationNot on file Plan of Treatment Not on file Medical Devices Not on file
--- OUTSIDE RECORDS SUMMARY | 2025-03-22 06:52 | XMS_ITS | Clinical Summary ---
Author Organization [facility] Address [address] [facility] [place] [address] Care Team Providers Care Template Cutter Name Role Phone Landy Cordoba NP Unavailable [phone] Tomas Martinez MD Primary Care Provider [phone] Allergies Active AllergyReactionsCriticalityNoted DateCommentsCodeineGI intolerance 04/20/2024 Medications MedicationSigDispense QuantityRefillsLast FilledStart DateEnd DateStatus busPIRone (Buspar) 5 MG tablet Indications:RAFFI (generalized anxiety disorder)Take 1 tablet (5 mg) by mouth in the morning and 1 tablet (5 mg) before bedtime. 60 tablet 5Active Active Problems ProblemNoted DateDiagnosed DateGAD (generalized anxiety disorder)01/12/2025 Assessment & Plan (01/12/2025 10:17 AM EDT): Start buspar I do think BP is related to anxiety Set boundary on freq and time spent at detention [place] in 4 weeks Relaxation techinques Elevated blood pressure dnjwgyj5901/12/2025 Assessment & Plan (01/12/2025 10:17 AM EDT): Low salt diet Check blood pressure daily and record Stop by office in 10 days for BP check Benign paroxysmal positional mpexobx9504/20/2024 Assessment & Plan (04/20/2024 10:43 AM EST): No acute symptoms Equinus contracture of ankle04/20/2024[place] nodes04/20/2024Mixed phljuihtdfvtxs57/19/2024rimary osteoarthritis involving multiple joints 04/20/2024Encounter for subsequent annual wellness visit (AWV) in Medicare vagafae9904/20/2024 Assessment & Plan (04/20/2024 6:37 AM EST): Reviewed Ht/Wt/BMI Recommend eye exam yearly Recommend dental exams twice a year Balance work/leisure activities Exercises is recommended most days of the week (appropriate as chronic conditions allow) Follow up yearly and prn Encounter for screening mammogram for malignant neoplasm of mvrbbm6204/20/2024 Colon cancer alwrnxpjr15/19/2024 Assessment & Plan (04/20/2024 10:41 AM EST): Colon cancer screening options were discussed with [...] colonoscopy would be the test of choice Resolved Problems ProblemNoted DateDiagnosed DateResolved PsumKpecjnfot89/19/76463706/20/2023 Encounters DateTypeDepartmentCare CkjyGyprcstdmfz61/13/2025 9:40 AM EDTOffice Visit [facility] [address] [place] [address] Landy Cordoba NP RAFFI (generalized anxiety disorder) (Primary Dx); Elevated blood pressure quxywkq3101/12/2025amboo flowsheet [facility] [address] [place] [address] Landy Cordoba NP from Last 3 Months Immunizations ImmunizationAdministration DatesNext DueInfluenza, High-dose Seasonal, Quadrivalent, Preservative Free03/26/2024,03/03/2023,03/21/2022,02/16/2021 Influenza, injectable, quadrivalent, preservative free03/14/2020Influenza, recombinant, quadrivalent, injectable, preservative free03/31/2019Janssen HDCB-VeL-339/19/2021,07/21/2020Moderna SARS-CoV-2 Xauuhewkiqf64/19/2021, 1Pneumococcal, Qphbuvnspjn66/18/2023Zoster, Dodubswjovn70/04/2023, 03/03/2023 Social History Tobacco UseTypesPacks/DayYears UsedDateSmoking Tobacco: NeverSmokeless Tobacco: Never Tobacco Cessation:Counseling Given: Not Answered CommentsUnknownSex and Gender InformationValueDate RecordedSex Assigned at BirthNot on fileLegal QniFdfhms22/15/2023 7:22 PM EDTGender IdentityNot on fileSexual OrientationNot on file Last Filed Vital Signs Vital SignReadingTime TakenCommentsBlood Qghoupdz732/8401/12/2025 9:37 AM EDT Cnfmo4663/13/2025 9:37 AM DRDCuivaawldtu48.6 ??C (97.8 ??F)01/12/2025 9:37 AM EDTRespiratory Sbtv331201/12/2025 9:37 AM EDTOxygen Cfiespfxqm67%01/12/2025 9:37 AM EDTInhaled Oxygen Concentration--Lvvbjh50.3 kg (172 lb 9.6 oz)01/12/2025 9:37 AM MPDOjnueb256.9 cm (5' 1 )08/03/2024 8:56 AM ESTBody Mass Index32.61008/03/2024 8:56 AM EST Plan of Treatment Health MaintenanceDue DateLast DoneCommentsCT Ibawueblhybn51/26/1955Colonoscopy 5Colorectal Cancer Utnpiccck55/26/1955FIT-DNA1954FIT1955 FOBT1955 6538Jzkiqfauaawwv89/26/1955Influenza Vaccine (#1)/, 03/03/2023, 03/21/2022, Additional history existsPneumococcal Vaccine: 65+ Years (1 of 1 - PCV)/3Postponed from 2004 (Patient Refused) Pylkaftxa29/11/2024, 04/24/2016 Procedures Procedure NamePriorityDate/TimeAssociated DiagnosisCommentsMM TOMOSYNTHESIS SCREENING BI10/06/2024 4:04 PM EDT from Last 3 Months or Most Recently Relevant to Health Maintenance Results * MM TOMOSYNTHESIS SCREENING BI (10/06/2024 4:04 PM EDT)Anatomical Region LateralityModalityOtherSpecimen (Source)Anatomical Location / Laterality Collection Method / VolumeCollection TimeReceived Time10/06/2024 4:04 PM EDT Narrative 10/06/2024 4:05 PM EDT [facility] ?[address] ? [place] [address] ? Mammography Report ? Signed ? Patient: HARPREET,TRACI S ?MR#: [id number] ?? : 1955 ?Acct:[id number] ?? Age/Sex: 68 / F ?ADM Date: 10/06/24 ?? Loc: MAMMO ? Attending Dr: Landy J Adalid PIPING DRAFTER ? Ordering Physician: Landy Cordoba PIPING DRAFTER ?Results: ? Date of Service: 10/06/24 ?Follow Up: ? Procedure(s): MM tomosynthesis screening BI ?? Accession Number(s): [id number] ? cc: Adalid,Landy PIPING DRAFTER ? Patient Name: ? TRACI MULLINS ? MR#: [id number] ? : 1955 ? Exam Date: 10/06/2024 ?? Ordering Doctor: RODRÍGUEZ CORDOBA CNP ? RADIOLOGY REPORT ? PROCEDURE: ? MM TOMOSYNTHESIS SCREENING BI ? COMPARISON: ? MM TOMOSYNTHESIS SCREENING BI, 03/18/2023. ??MG MAMM SCREEN 3D ?? MAHESH CAD, 12/20/2021. ??MG MAMM SCREEN 3D MAHESH CAD, 04/24/2016. ??MG MAMM SCREEN 3D ?? MAHESH CAD, 11/21/2009. ? INDICATIONS: ? Screening ? Calculator Name ? NCI Breast Cancer Risk Assessment Tool ?? 5 Year Breast Cancer Risk ? Not Reported. ?? Lifetime Breast Cancer Risk ? Not Reported. ?? Personal Breast Cancer ?No ?? Personal Ovarian Cancer ? No ?? Treatments ? None ?? Family Cancers ? None ? LOCATION: ? [facility] ? BREAST COMPOSITION: ? There are scattered areas of fibroglandular density. ? FINDINGS: ? DIAGNOSTIC CATEGORY 1--NEGATIVE. ? RIGHT BREAST: ??No significant suspicious finding. ? LEFT BREAST: ??No significant suspicious finding. ? RECOMMENDATIONS: ? ROUTINE MAMMOGRAM AND CLINICAL EVALUATION IN 12 MONTHS. ? PLEASE NOTE: ??A NORMAL MAMMOGRAM DOES NOT EXCLUDE THE POSSIBILITY OF BREAST ?? CANCER. ??A CLINICALLY SUSPICIOUS PALPABLE LUMP SHOULD BE BIOPSIED. ? Dictated by: David Rao DO on 10/06/2024 at 16:03 ? Approved by: David Rao, DO on 10/06/2024 at 16:04 ? Dictated By: ?David Rao M.D. ? Signed By: ?10/06/24 1605 ? DD/ 1604 ? TD/TT: ? Winding Lathe Operator: Procedure Note Radiology, Radiologist, MD - 10/06/[address] [address] Mammography Report Signed Patient: TRACI MULLINS [facility]#: [id number] : 5Acct:[id number] Age/Sex: 68 / FADM Date: 10/06/24 Loc: MAMMO Attending Dr: Landy Cordoba NP Ordering Physician: Landy Cordoba NPResults: Date of Service: 10/06/24Follow Up: Procedure(s): MM tomosynthesis screening BI Accession Number(s): [id number] cc: Landy Cordoba PIPING DRAFTER Patient Name: TRACI MULLINS MR#: [id number] : 1955 Exam Date: 10/06/2024 Ordering Doctor: RODRÍGUEZ CORDOBA CHIEF CRNA RADIOLOGY REPORT PROCEDURE: MM TOMOSYNTHESIS SCREENING BI COMPARISON: MM TOMOSYNTHESIS SCREENING BI, 03/18/2023. MG MAMM MGXECL4R MAHESH CAD, 12/20/2021. MG MAMM SCREEN 3D MAHESH CAD, 04/24/2016. MG MAMMSCREEN 3D MAHESH CAD, 11/21/2009. INDICATIONS: Screening Calculator Name NCI Breast Cancer Risk Assessment Tool 5 Year Breast Cancer Risk Not Reported. Lifetime Breast Cancer Risk Not Reported. Personal Breast Cancer No Personal Ovarian Cancer No Treatments None Family Cancers None LOCATION: [facility] BREAST COMPOSITION: There are scattered areas of fibroglandulardensity. FINDINGS: DIAGNOSTIC CATEGORY 1--NEGATIVE. RIGHT BREAST: No significant suspicious finding. LEFT BREAST: No significant suspicious finding. RECOMMENDATIONS: ROUTINE MAMMOGRAM AND CLINICAL EVALUATION IN 12 MONTHS. PLEASE NOTE: A NORMAL MAMMOGRAM DOES NOT EXCLUDE THE POSSIBILITY OFBREAST CANCER. A CLINICALLY SUSPICIOUS PALPABLE LUMP SHOULD BE BIOPSIED. Dictated by: David Rao DO on 10/06/2024 at 16:03 Approved by: David Rao DO on 10/06/2024 at 16:04 Dictated By: David Rao M.D. Signed By:10/06/24 1605 DD/ 1604 TD/TT: Winding Lathe Operator: Authorizing ProviderResult TypeResult StatusLisa Adalid NPCLINISYNC IMAGING Final Result from Last 3 Months or Most Recently Relevant to Health Maintenance Insurance * Guarantor: Traci Mullins Precious TypeRelation to PatientDate of BirthPhone Billing AddressPersonal/JiqgjxKokl64/26/1956 [facility] [place] [address] Care Teams Team MemberRelationshipSpecialtyStart DateEnd Date Tomas Martinez MD PCP - GeneralFamily Brybbftk99/19/24 Landy Cordoba NP Nurse PractitionerFamily Medicine01/06/23
[2025-03-22 08:17] LABS: Anion Gap 11.5; Blood Urea Nitrogen 9.0 mg/dL (7.0-18.0); Calcium 9.1 mg/dL (8.5-10.1); Carbon Dioxide 30.5 mmol/L (21.0-32.0); Chloride 104 mmol/L (98-107); Estimated GFR (African America >60 (>=60 mL/min/1.73m^2); Estimated GFR (Non-African Ame >60 (>=60 mL/min/1.73m^2); Glucose 92 mg/dL (74-106); Potassium 4.0 mmol/L (3.5-5.1); Sodium 142 mmol/L (136-145)
== END 2025-03-22 06:49 | disposition home or self-care (01) ==
LOC: LAB 06:49
PROVIDERS: PCP Nurse Practitioner; Visit Provider Nurse Practitioner
DX: I10 Essential (primary) hypertension (principal)
CPT/HCPCS: 36415; 80048